=== PATIENT | male | born 1945 | race Caucasian/White ===

== ENCOUNTER 2017-04-22 16:06 | Inpatient (IN) | payer MEDICARE, OTHER ==
[~2017-04-22] VITALS: Ht 170.2 cm; Wt 73.5 kg
[~2017-04-22 16:06] MED LIST: ACET325T45 PO; ALBU2.5V3 NEB; AMLO2.5T78 PO; ASPI81TA3 PO; ATOR40TA68 PO; BENA20TA48 PO; DOCU-159 PO; DONE10TA7 PO; FAMO20TA18 PO; FOLI-49 PO; MAGN400T28 PO; MEMA10TA16 PO; METF500T4 PO; NEPH PO; Oxybutynin Chloride PO; SITA50TA2 PO
[2017-04-22] MEDS ORDERED: SODIUM CHLORIDE 0.9% 1L BAG IV* STA (17:27)
[2017-04-22] MEDS ORDERED: CEFEPIME 2GM/50 ML (PMX) 50 ML IVPB STA (17:27)
[2017-04-22] MEDS ORDERED: VANCOMYCIN 1 GM (PMX) 250 ML IVPB ONE (17:30)
[2017-04-22 18:02] LABS: ADD UMIC YES; UR ASCORBIC ACID NEGATIVE (NEGATIVE); UR BILIRUBIN (Dip) NEGATIVE (NEGATIVE); UR BLOOD (Dip) 2+ mg/dL (NEGATIVE); UR CLARITY CLEAR (CLEAR); UR COLOR YELLOW (YELLOW); UR GLUCOSE (Dip) 3+ mg/dL (NEGATIVE); UR KETONES (Dip) NEGATIVE (NEGATIVE); UR LEUKOCYTE ESTERASE (Dip) NEGATIVE Leu/ul (NEGATIVE); UR NITRITE (Dip) NEGATIVE (NEGATIVE); UR RBC 10 /HPF (0-5); UR SPECIFIC GRAVITY (Dip) 1.023 (1.003-1.030); UR TOTAL PROTEIN (Dip) NEGATIVE (NEGATIVE); UR UROBILINOGEN (Dip) NEGATIVE (NEGATIVE)
[2017-04-22 18:05] LABS: ABNORMAL IP MESSAGE 1; HEMOGLOBIN 15.6 g/dl (14.0-18.0); MEAN CORPUSCULAR HEMOGLOBIN 30.2 pg (29.0-33.0); MEAN CORPUSCULAR HGB CONC 30.6 g/dl (32.0-37.0); MEAN CORPUSCULAR VOLUME 98.8 fl (82.0-101.0); MEAN PLATELET VOLUME 12.9 fl (7.4-10.4); PLATELET COUNT 206 10^3/UL (140-415); POSITIVE DIFF @See below; RED BLOOD COUNT 5.16 10^6/ul (4.70-6.10); RED CELL DISTRIBUTION WIDTH 13.7 % (11.5-14.5); WHITE BLOOD COUNT 22.9 10^3/ul (4.8-10.8)
[2017-04-22 18:10] LABS: INR 1.39; PROTIME 17.1 Sec (12.2-14.2); PT RATIO 1.3
[2017-04-22 18:11] LABS: PARTIAL THROMBOPLASTIN TIME 29.1 Sec (25.0-35.0)
[2017-04-22 18:13] LABS: ALBUMIN 3.3 g/dl (3.3-4.9); ALBUMIN/GLOBULIN RATIO 0.91; BILIRUBIN,INDIRECT 0.7 mg/dl (0-1.1); BILIRUBIN,TOTAL 0.7 mg/dl (0.2-1.3); CALCIUM 10.2 mg/dl (8.4-10.2); CREATININE 2.47 mg/dl (0.61-1.24); POTASSIUM 4.4 mmol/L (3.5-5.1); TOTAL PROTEIN 6.9 g/dl (6.1-8.1)
[2017-04-22] MEDS ORDERED: AMLO5TAB4 PO (18:15)
[2017-04-22] MEDS ORDERED: CHLO25TA13 PO (18:16)
[2017-04-22] MEDS ORDERED: BENAZEPRIL 10 MG PO (18:18)
[2017-04-22] MEDS ORDERED: MAGN400T28 PO (18:19)
[2017-04-22] MEDS ORDERED: METF500T4 PO (18:20)
[2017-04-22] MEDS ORDERED: RIVA20TA PO (18:21)
[2017-04-22] MEDS ORDERED: DONE5TAB7 PO (18:22)
[2017-04-22] MEDS ORDERED: ATOR40TA68 PO (18:22)
[2017-04-22] MEDS ORDERED: FAMO20TA18 PO (18:23)
[2017-04-22 18:24] LABS: TROPONIN-I 0.107 ng/ml (0.00-0.12)
[2017-04-22] MEDS ORDERED: CARV12.579 PO (18:24)
[2017-04-22] MEDS ORDERED: INSU300I SQ (18:25)
[2017-04-22] MEDS ORDERED: ACET-2047 PO (18:27)
--- NOTE | 2017-04-22 18:27 | RADRPT ---
PROCEDURE: Chest x-ray CLINICAL INDICATION: Shortness of breath TECHNIQUE: Chest single view COMPARISON: 08/16/2014 FINDINGS: There post CABG changes. Stable mild cardiomegaly and an sclerotic aortic calcification is seen. The pulmonary vessels are normal in caliber. The lungs are clear. The costophrenic angles are sharp. The visualized bony thorax is unremarkable. IMPRESSION: No acute cardiopulmonary disease. Stable mild cardiomegaly and atherosclerotic aortic calcification RPTAT: HH .Bishnu Fernandez MD, Date Time Electronically viewed and signed by .Bishnu Fernandez MD, on 04/22/2017 18:27 .W/
[2017-04-22] MEDS ORDERED: BISA5TAB6 PO (18:28)
[2017-04-22] MEDS ORDERED: MAGN400O4 PO (18:28)
[2017-04-22] MEDS ORDERED: INSULIN ASPART [NOVOLOG] 3 ML PEN SC ONE ×2 (18:30→22:00)
[2017-04-22] MEDS ORDERED: GLUC1VIA6 IJ (18:30)
[2017-04-22] MEDS ORDERED: RIVA15TA PO (18:32)
[2017-04-22] MEDS ORDERED: ATOR20TA38 PO (18:33)
--- NOTE | 2017-04-22 18:37 | ERA ---
ER Documentation Chief Complaint Date/Time DATE: 04/22/17 TIME: 18:30 Chief Complaint HPI 71-year-old male with a history of diabetes, hypertension, dementia, multiple strokes, brought in by ambulance for altered mental status and fever at his nursing facility. Otherwise history is limited as the patient is nonverbal and there is no family members around. ROS Limited secondary to altered mental status Medications Home Meds Reported Medications Atorvastatin Calcium* (Atorvastatin Calcium*) 20 Mg Tablet, 20 MG PO QHS, #30 TAB 04/22/17 Rivaroxaban* (Xarelto*) 15 Mg Tablet, 15 MG PO QHS, TAB 04/22/17 Glucagon HCl (Glucagon HCl) 1 Mg Vial, 1 MG IJ NEEDED for FOR GLUCOSE, VIAL IF GLUCOSE<60MG/DL 04/22/17 Magnesium Hydroxide* (Milk Of Magnesia*) 400 Mg/5 Ml Oral.susp, 30 ML PO Q24H Y for NEEDED, ML 04/22/17 Bisacodyl* (Bisacodyl*) 5 Mg Tablet.dr, 5 MG PO DAILY Y for CONSTIPATION, TAB 04/22/17 Acetaminophen* (Acetaminophen*) 650 Mg Tablet, 650 MG PO Q4H Y for NEEDED, # 30 TAB FOR MILD PAIN 04/22/17 Insulin Glargine,Hum.rec.anlog ([place] Verduzco) 300 Unit/1 Ml Insuln.pen, 24 UNIT SQ Q9AM 04/22/17 Carvedilol* (Carvedilol*) 12.5 Mg Tablet, 12.5 MG PO BID, #60 TAB HOLD FOR SBP<100,HR<60 04/22/17 Famotidine* (Famotidine*) 20 Mg Tablet, 20 MG PO Q9PM, #30 TAB 04/22/17 Donepezil* (Donepezil*) 5 Mg Tablet, 5 MG PO Q9PM, #30 TAB 04/22/17 Atorvastatin* (Atorvastatin*) 40 Mg Tablet, 40 MG PO Q9PM, #30 TAB 04/22/17 Metformin Hcl* (Metformin Hcl*) 500 Mg Tablet, 500 MG PO WITH BREAKFAST, #30 TAB Q7AM 04/22/17 Magnesium Oxide* (Magnesium Oxide*) 400 Mg Tablet, 400 MG PO Q9AM, TAB 04/22/17 [Lotensin 10MG] No Conflict Check, 10 MG PO Q9AM 04/22/17 Chlorthalidone* (Chlorthalidone*) 25 Mg Tablet, 12.5 MG PO Q9AM, TAB 04/22/17 Amlodipine Besylate* (Norvasc*) 5 Mg Tablet, 5 MG PO Q9AM, TAB 04/22/17 Discontinued Reported Medications Rivaroxaban* (Xarelto*) 20 Mg Tablet, 20 MG PO WITH DINNER, TAB Q5PM 04/22/17 Albuterol Sulfate* (Albuterol Sulfate* Neb) 0.083%-3 Ml Neb, 1 VIAL NEB Q3H Y for WHEEZING AND SOB, EA 08/12/14 Acetaminophen* (Acetaminophen*) 325 Mg Tablet, 650 MG PO Q4H Y for PAIN AND OR ELEVATED TEMP, TAB 08/12/14 Famotidine* (Famotidine*) 20 Mg Tablet, 20 MG PO BID, TAB 08/12/14 Memantine* (Namenda*) 10 Mg Tablet, 10 MG PO BID, TAB 08/12/14 Benazepril Hcl* (Benazepril Hcl*) 20 Mg Tablet, 20 MG PO DAILY, TAB 08/12/14 Atorvastatin* (Atorvastatin*) 40 Mg Tablet, 40 MG PO HS, TAB 08/12/14 Amlodipine Besylate* (Amlodipine Besylate*) 2.5 Mg Tablet, 2.5 MG PO DAILY, TAB 08/12/14 Donepezil* (Donepezil*) 10 Mg Tablet, 10 MG PO DAILY, TAB 08/12/14 Sitagliptin* (Januvia*) 50 Mg Tablet, 50 MG PO DAILY, TAB 08/12/14 Aspirin* (Aspirin* Chew) 81 Mg Tab.chew, 81 MG PO DAILY, TAB.CHEW 08/12/14 Metformin Hcl* (Metformin Hcl*) 500 Mg Tablet, 500 MG PO DAILY, TAB 08/12/14 Magnesium Oxide* (Magnesium Oxide*) 400 Mg Tablet, 400 MG PO DAILY, TAB 08/12/14 Docusate Sodium* (Docusate Sodium*) 100 Mg Capsule, 100 MG PO DAILY, CAP 08/12/14 Multivit/Ca Carb/B Cmplx/Fa* (Christy-Garret*) 1 Tab Tab, 1 TAB PO DAILY, TAB 08/12/14 Folic Acid* (Folic Acid*) 1 Mg Tablet, 1 MG PO, TAB 08/12/14 Discontinued Scripts [Oxybutynin Chloride] 5 MG TAB No Conflict Check, 5 MG PO TID for 30 Days, TAB Prov:MIRNA EGAN MD 08/19/14 Allergies Allergies: Coded Allergies: No Known Allergy (Unverified , 04/22/17) PMhx/Soc History of Surgery: No Anesthesia Reaction: No Hx Neurological Disorder: Yes (RT CVA) Hx Respiratory Disorders: Yes (COPD) Hx Cardiac Disorders: Yes (HYPERLIPIDEMIA, HTN) Hx Psychiatric Problems: Yes (CHRONIC MENTAL ILLNESS) Hx Miscellaneous Medical Probl: Yes (HTN, HLD, CVA c L hemiplegia, CKD, COPD, recurrent bronchitis, urosepsis,DM) Hx Alcohol Use: No Hx Substance Use: No Hx Tobacco Use: No FmHx Family History: other (unAble to obtain) Physical Exam Vitals Vital Signs Date Time Temp Pulse Resp B/P Pulse Ox O2 Delivery O2 Flow Rate FiO2 04/22/17 20:41 100 23 93/61 99 Mask 5.0 04/22/17 19:46 105 23 88/62 99 Non Rebreather 10.0 04/22/17 18:43 107 30 79/57 96 Non Rebreather 10.0 04/22/17 18:08 106 30 80/62 98 Non Rebreather 10.0 04/22/17 17:45 Rebreather 10 04/22/17 17:22 83 24 68/54 98 Non Rebreather 10.0 04/22/17 16:49 83 24 68/54 98 Physical Exam Const: Chronically ill-appearing, eyes open, unresponsive, appears somewhat toxic Head: Atraumatic Eyes: Normal Conjunctiva, PERRLA ENT: Dry mucous membranes, mouth open Neck: No swelling C-spine without step-offs, no evidence of trauma Resp: Breath sounds bilaterally with crackles Cardio: Regular rate and rhythm, no murmurs Abd: Soft, non tender, non distended. Normal bowel sounds Skin: No petechiae or rashes Back: No midline or flank tenderness Ext: No cyanosis, or edema. Right upper and lower extremity contracted with atrophy. Neur: Awake and alert, not answering questions, does not track with eyes. Rupali. Spontaneously moves left hand and left lower extremity, withdraws to pain. Right lower and upper extremity without withdrawal to painful stimuli Result Diagram: 04/22/17 1730 04/22/17 2255 Results 24 hrs Laboratory Tests Test 04/22/17 17:30 04/22/17 19:36 04/22/17 20:15 04/22/17 21:50 White Blood Count 22.910^3/ul Red Blood Count 5.1610^6/ul Hemoglobin 15.6g/dl Hematocrit 51.0% Mean Corpuscular Volume 98.8fl Mean Corpuscular Hemoglobin 30.2pg Mean Corpuscular Hemoglobin Concent 30.6g/dl Red Cell Distribution Width 13.7% Platelet Count 19413^3/UL Mean Platelet Volume 12.9fl Neutrophils % % Segmented Neutrophils % (Manual) 92% Lymphocytes % % Lymphocytes % (Manual) 6% Monocytes % % Monocytes % (Manual) 2% Eosinophils % % Basophils % % Nucleated Red Blood Cells % 0.0/100WBC Neutrophils # 10^3/ul Absolute Lymphocytes (Manual) 1.310^3/ul Lymphocytes # 10^3/ul Monocytes # 10^3/ul Absolute Monocytes (Manual) 0.410^3/ul Eosinophils # 10^3/ul Basophils # 10^3/ul Nucleated Red Blood Cells # 10^3/ul Platelet Estimate NORMAL Giant Platelets 1% Polychromasia 1+ Anisocytosis 1+ Microcytosis 1+ Prothrombin Time 17.1Sec Prothrombin Time Ratio 1.3 INR International Normalized Ratio 1.39 Activated Partial Thromboplast Time 29.1Sec Urine Color YELLOW Urine Clarity CLEAR Urine pH 5.0 Urine Specific [place] 1.023 Urine Ketones NEGATIVEmg/dL Urine Nitrite NEGATIVEmg/dL Urine Bilirubin NEGATIVEmg/dL Urine Urobilinogen NEGATIVEmg/dL Urine Leukocyte Esterase NEGATIVELeu/ul Urine Microscopic RBC 10/HPF Urine Microscopic WBC 1/HPF Urine Hemoglobin 2+mg/dL Urine Glucose 3+mg/dL Urine Total Protein NEGATIVEmg/dl Sodium Level 160mmol/L Potassium Level 4.4mmol/L Chloride Level 127mmol/L Carbon Dioxide Level 24mmol/L Anion Gap 13 Blood Urea Nitrogen 65mg/dl Creatinine 2.47mg/dl Glucose Level 576mg/dl Lactic Acid Level 3.0mmol/L 1.9mmol/L Calcium Level 10.2mg/dl Total Bilirubin 0.7mg/dl Direct Bilirubin 0.00mg/dl Indirect Bilirubin 0.7mg/dl Aspartate Amino Transf (AST/SGOT) 18IU/L Alanine Aminotransferase (ALT/SGPT) 21IU/L Alkaline Phosphatase 78IU/L Troponin I 0.107ng/ml Total Protein 6.9g/dl Albumin 3.3g/dl Globulin 3.60g/dl Albumin/Globulin Ratio 0.91 Bedside Glucose 389mg/dL 363mg/dL Current Medications Medications (Trade) Dose Ordered Sig/[place] Route PRN Reason Start Time Stop Time Status Last Admin Dose Admin Sodium Chloride 1970 ml 1,970 ml BOLUS OVER 2 HOURS STAT IV* 04/22/17 17:27 04/22/17 17:39 DC 04/22/17 17:54 Cefepime HCl 50 ml @ 100 mls/hr ONCE STAT IVPB 04/22/17 17:27 04/22/17 17:56 DC 04/22/17 20:03 Vancomycin HCl (Vancocin) 250 ml @ 125 mls/hr ONCE ONCE IVPB 04/22/17 17:30 04/22/17 19:29 DC 04/22/17 17:55 Insulin Aspart (Novolog Insulin Pen) 10 unit ONCE ONCE SC 04/22/17 18:30 04/22/17 18:31 DC 04/22/17 20:17 Diagnostic Test (Pha) 1 ea 1 ea Q2 XX 04/22/17 19:00 04/23/17 01:04 Norepinephrine (Levophed) 250 ml @ 1.875 mls/ hr TITRATE IV 04/22/17 20:30 04/22/17 20:35 Insulin Aspart (Novolog Insulin Pen) 5 unit ONCE ONCE SC 04/22/17 22:00 04/22/17 22:01 DC 04/22/17 21:58 Ondansetron HCl (Zofran Inj) 4 mg Q6H PRN IV NAUSEA AND/OR VOMITING 04/22/17 22:00 Acetaminophen (Tylenol Supp) 650 mg Q4H PRN NE PAIN LEVEL 1-3 OR FEVER 04/22/17 22:00 Procedures/MDM Labs CBC: leukocytosis of 22 CMP: Hypernatremia, hyperchloremia, elevated BUN and creatinine, hyperglycemia Troponin within normal limits Lactate elevated UA: no evidence of infection EKG: Rate/Rhythm: Sinus tachycardia at 10 2 bpm QRS, ST, T-waves: Left axis deviation, right bundle branch block, inferior, anterior, lateral Q waves. No changes consistent w/ acute ischemia Impression: Sinus tachycardia, no evidence of acute ischemia Imaging Chest x-ray: IMPRESSION: No acute cardiopulmonary disease. Stable mild cardiomegaly and atherosclerotic aortic calcification RPTAT: HH .Bishnu Fernandez MD, Date Time Electronically viewed and signed by .Bishnu Fernandez MD, MD on 04/22/2017 18:27 CT head: IMPRESSION: 1. Old left MCA territory infarct with encephalomalacia and wallerian degeneration of downstream corticospinal tracts has evolved since the prior exam. There is a new cortical infarct in the posterior right temporal lobe that is likely chronic. Patchy low density changes in the supratentorial deep white matter are increased from prior exam and nonspecific but likely due to chronic small vessel ischemia. If there is concern for recent ischemia, recommend MRI. 2. Negative for evidence of acute intracranial hemorrhage or mass effect. 3. Severe intracranial atherosclerosis. RPTAT: HCTS Physician Anastasia Date Time Electronically viewed and signed by Physician Anastasia on 04/22/2017 18: 45 MDM She is presenting with altered mental status, acute respiratory failure, and evidence of significant dehydration, hyperglycemia, and sepsis. He was started on IV fluids. His hyperglycemia was treated with insulin subcutaneously with improvement. Also noted to have renal failure. Patient's infectious symptoms have not stabilized and the patient is at risk of rapid decompensation. The patient will be admitted for careful hydration, antibiotic therapy, and infectious source control. Severe Sepsis Assessment: Infectious Source: Unknown End organ damage indicated by: Lactate > 2.0 mmol/L Hypotension( SBP < 90 or >40 mmHG drop or MAP < 65) [employer] > 2.0 Severe Sepsis Managment: Blood Cultures X 2 before broad spectrum antibiotics initiated within 3 hours of recognition. 30 ml/kg NS bolus Completed Initial Lactate: 3 Repeat Lactate within normal limits Critical Care: Time: 40 minutes Treatments/Evaluations: Emergent fluid management, while maintaining close respiratory support. Immediate broad spectrum antibiotic therapy. Simultaneous assessment for possible sources in order to direct therapy. Consideration for invasive and chemical support to prevent respiratory or cardiac collapse. Septic Shock Assessment (1 hour post 30 ml/kg fluid bolus): Hypotension (SBP < 90 or 40 mmHg drop, MAP < 65): yes Lactic acid > 4.0 no After the fluid bolus, the patient remains slightly hypotensive. I did a bedside ultrasound of his IVC and it was full and not collapsible. I do not think the patient will tolerate any further fluid boluses and this would likely make his respiratory condition worse. He was started on peripheral norepinephrine for hypotension. Accepting Care Team: Current data and ongoing care discussed. Time: Time of admission Primary Provider: Adalid Consulting: None Admit to ICU Departure Diagnosis: Primary Impression: Altered mental status Qualified Code: R41.82 - Altered mental status, unspecified altered mental status type Additional Impressions: Respiratory failure with hypoxia Qualified Code: J96.01 - Acute respiratory failure with hypoxia Septic shock Acute hypernatremia Hyperglycemia Renal failure Qualified Code: N19 - Renal failure, unspecified chronicity Condition: Critical NICOLETTE LEA MD Apr 22, 2017 18:37
[2017-04-22 18:38] LABS: ANISOCYTOSIS 1+ (0-0); GIANT THROMBO% (M) 1 % (0-0); MICROCYTOSIS 1+ (0-0); MONOCYTES % (M) 2 % (0-11); PLATELET ESTIMATE NORMAL; POLYCHROMASIA 1+ (0-0)
--- NOTE | 2017-04-22 18:45 | RADRPT ---
PROCEDURE: CT HEAD WITHOUT CONTRAST: CLINICAL INDICATION: 71 years of age, male, altered level of consciousness . COMPARISON: MR brain August 16, [address] brain August 12, 2014 TECHNIQUE: CT of the head was performed without IV contrast. Coronal and sagittal reformatted images were obtained from the axial source images. Images were reviewed on a high-resolution PACS workstat ion. Dose information: The estimated radiation dose (CTDIvol mGy) for each series in this exam is 49. Th e estimated cumulative dose (DLP mGy-cm) is 796. One or more of the following dose reduction techniques were used: - Automated exposure control. - Adjustment of the mA and/or kV according to patient size. - Use of iterative reconstruction technique. FINDINGS: Parenchyma: Negative for evidence of acute intracranial hemorrhage, significant mass effect or midli ne shift. There is an old left MCA territory infarct with extensive encephalomalacia and ex vacuo dilatation of the left lateral ventricle and Wallerian degeneration affecting the left cerebral pedu ncle and the left fidencio that has evolved since prior exam. There is a new cortical infarct in the pos terior right temporal lobe that appears chronic (2/15). There are nonspecific patchy low density ch anges in the supratentorial deep white matter that are increased and nonspecific but likely due to chronic small vessel ischemia. Moderate diffuse cerebral tissue loss. Severe intracranial atherosc lerosis. Ventricles and extra-axial spaces: Prominence of the ventricles proportionate to the sulci in keepin g with cerebral tissue loss. There is ex vacuo dilatation of the left lateral ventricle due to the o ld left MCA territory infarct. No abnormal extra-axial fluid collections are identified. Visualized paranasal sinuses: Clear. Mastoid air cells: Clear. Bones: No focal abnormality. Additional comment: None. IMPRESSION: 1. Old left MCA territory infarct with encephalomalacia and wallerian degeneration of downstream co rticospinal tracts has evolved since the prior exam. There is a new cortical infarct in the posterio r right temporal lobe that is likely chronic. Patchy low density changes in the supratentorial deep white matter are increased from prior exam and nonspecific but likely due to chronic small vessel is chemia. If there is concern for recent ischemia, recommend MRI. 2. Negative for evidence of acute intracranial hemorrhage or mass effect. 3. Severe intracranial atherosclerosis. RPTAT: HCTS Summer Quach, Physician Date Time Electronically viewed and signed by Summer Quach, Physician on 04/22/2017 18:45 /
[2017-04-22] MEDS: ACCU-CHEK XX SCH ×3 (19:48→23:10)
[2017-04-22] MEDS ORDERED: NORepinephrine 8MG/250 ML (PMX 250 ML IV SCH (20:30)
[2017-04-22] MEDS ORDERED: ONDANSETRON 4 MG INJ IV PRN (22:00)
[2017-04-22] MEDS ORDERED: ACETAMINOPHEN 650 MG SUPP PR PRN (22:00)
[2017-04-22 23:10] VITALS: TEMP 98.3
[2017-04-22 23:33] VITALS: PULSE 74; PULSE 93
[2017-04-22 23:39] LABS: CREATININE 2.12 mg/dl (0.61-1.24); POTASSIUM 4.2 mmol/L (3.5-5.1)
[2017-04-22 23:45] VITALS: BP 95/73; PULSE 97; RESP 22
[2017-04-23] VITALS (62 sets, daily range): BP systolic 99–132; BP diastolic 59–101; PULSE 63–84; RESP 13–25; Ht 170.2 cm; Wt 73.5 kg
[2017-04-23] MEDS ORDERED: INSULIN ASPART [NOVOLOG] 3 ML PEN SC ONE (00:30)
[2017-04-23] MEDS ORDERED: SOD CHLORIDE 0.45% 1,000 ML IV SCH (01:00)
[2017-04-23] MEDS: INSULIN ASPART [NOVOLOG] 3 ML PEN SC SCH ×6 (01:00→22:21)
[2017-04-23] MEDS: ACCU-CHEK XX SCH ×9 (01:04→15:00)
--- NOTE | 2017-04-23 01:26 | HP ---
Date/Time of Note Date/Time of Note DATE: 04/23/17 TIME: 00:56 Assessment/Plan VTE Prophylaxis VTE Prophylaxis Intervention: SCD's Lines/Catheters IV [facility]ter Type (from [facility]): Central Line Central line still needed: No Assessment/Plan Chief Complaint/Hosp Course This is a 71-year-old male being admitted to the ICU floor for: #1 Sepsis: Patient initially presented hypotensive and tachypneic. At the current time chest x-ray appears normal and urinalysis appears negative as well. Patient however does have an elevated white blood cell count. Start broad-spectrum antibiotics of vancomycin and cefepime. Will obtain urine and blood cultures. History of decub ulcers which also could be because of infection will consult wound care. Continue to monitor for fevers. Currently on levophed for blood pressure support. #2 encephalopathy: Infection and/or metabolic and/or chronic vascular. Patient has a history of cognitive impairment secondary to multiple comorbidities. At the current time patient does appear to be septic and dealing with her infection would likely could be the cause of his altered status. Attempt was made to call the daughter however was unable to contact her to assess for patient's most recent mental status prior to this change. Scan does show signs of old infarct however no signs of an acute event. Treat infection continue to monitor. dysphagia eval. #3 hypernatremia: Etiology unknown at this time some causes may be secondary to osmotic diuresis secondary to uncontrolled diabetes versus insensible losses versus other etiology. Check urine and serum osmolality. Will check fractional excretion of sodium. Will obtain a nephrology consult. Will attempt to correct hyponatremia slowly with half normal saline at approximately 125 cc an hour. Will check BMP every 3 hours. #4 Chronic kidney disease: Patient apparently has a history of stage III. Will continue to follow creatinine and calculated GFR. Urine studies ordered as per #3. Hold nephrotoxic agents. Renally dose antibiotics. #5 leukocytosis: Secondary to underlying infection, right now there is no source of infection. Covered with broad-spectrum antibiotics at that time. Please see #1. Await urine cultures and blood cultures. #6 diabetes mellitus: Patient on insulin sliding scale, will check blood sugars every hour while in the ICU until better control of blood sugars. IV fluids. #7 hypertension: At the current time patient is on pressors secondary to hypotension. Will hold blood pressure medication at this time. #8 History of CVA: Resulting in paresis however unable to assess which side exactly has been effective if not both secondary to patient cognitively impaired. Will attempt to get a better history from the family. resume statin when patient can tolerate po #9 decubitus ulcer: We will obtain wound care consult, patient currently on antibiotics. #10 DVT GI prophylaxis: SCDs, Protonix Treatment strategy will be implemented as per the clinical course Problems: HPI/ROS Admit Date/Time Admit Date/Time Apr 22, 2017 at 22:01 Hx of Present Illness Chief complaint: Altered level of consciousness, fever, shortness of breath History is obtained from the nursing staff and the ED staff as well as the patient's chart as patient himself is nonverbal. This is a 8-year-old male who was transferred from [facility] for altered level of consciousness fever and shortness of breath. He was sent in to be evaluated for pneumonia. Patient himself is nonverbal and therefore was difficult to get history from him. According to patient's chart he has a history of chronic medication impairment secondary to his strokes and he is not able to follow command and nods rarely. 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 Decubitus Past Surgical History Incision and drainage of right buttock abscess Family History Significant Family History: no pertinent family hx Social History Information obtained from the chart. Patient has a daughter and son. Alcohol Use: none Smoking Status: Never smoker Drug Use: none Exam/Review of Systems Vital Signs Vitals Vital Signs Date Time Temp Pulse Resp B/P Pulse Ox O2 Delivery O2 Flow Rate FiO2 04/23/17 00:00 98.9 79 24 124/76 100 Mask 5.0 Intake and Output 04/22/17 04/22/17 04/23/17 15:00 23:00 07:00 Output Total 500 ml Balance -500 ml Exam Exam General: Patient is lying in bed does not appear in acute distress HEENT: Atraumatic, normocephalic. The pupils are equal, round and reactive. Extraocular motor are intact Neck: No rigidity or meningismus Lungs: Clear to auscultation bilaterally no crackles rales or wheezing Heart: Normal S1-S2, Regular rhythm and rate. No overt murmur appreciated Abdomen: Soft , nontender, nondistended , bowel sounds are present. No guarding no rebound tenderness , No masses or organomegaly. Extremities: Normal to inspection, no edema no cyanosis Neurologic: Unable to assess secondary to patient's chronic mental illness as well as history of CVA resulting in cognitive and functional impairment Additional Comments PROCEDURE: CT HEAD WITHOUT CONTRAST: CLINICAL INDICATION: 71 years of age, male, altered level of consciousness . COMPARISON: MR brain August 16, [address] brain August 12, 2014 TECHNIQUE: CT of the head was performed without IV contrast. Coronal and sagittal reformatted images were obtained from the axial source images. Images were reviewed on a high-resolution PACS workstation. Dose information: The estimated radiation dose (CTDIvol mGy) for each series in this exam is 49. The estimated cumulative dose (DLP mGy-cm) is 796. One or more of the following dose reduction techniques were used: - Automated exposure control. - Adjustment of the mA and/or kV according to patient size. - Use of iterative reconstruction technique. FINDINGS: Parenchyma: Negative for evidence of acute intracranial hemorrhage, significant mass effect or midline shift. There is an old left MCA territory infarct with extensive encephalomalacia and ex vacuo dilatation of the left lateral ventricle and Wallerian degeneration affecting the left cerebral peduncle and the left fidencio that has evolved since prior exam. There is a new cortical infarct in the posterior right temporal lobe that appears chronic (2/15). There are nonspecific patchy low density changes in the supratentorial deep white matter that are increased and nonspecific but likely due to chronic small vessel ischemia. Moderate diffuse cerebral tissue loss. Severe intracranial atherosclerosis. Ventricles and extra-axial spaces: Prominence of the ventricles proportionate to the sulci in keeping with cerebral tissue loss. There is ex vacuo dilatation of the left lateral ventricle due to the old left MCA territory infarct. No abnormal extra-axial fluid collections are identified. Visualized paranasal sinuses: Clear. Mastoid air cells: Clear. Bones: No focal abnormality. Additional comment: None. IMPRESSION: 1. Old left MCA territory infarct with encephalomalacia and wallerian degeneration of downstream corticospinal tracts has evolved since the prior exam. There is a new cortical infarct in the posterior right temporal lobe that is likely chronic. Patchy low density changes in the supratentorial deep white matter are increased from prior exam and nonspecific but likely due to chronic small vessel ischemia. If there is concern for recent ischemia, recommend MRI. 2. Negative for evidence of acute intracranial hemorrhage or mass effect. 3. Severe intracranial atherosclerosis. RPTAT: HCTS Summer Quach Physician Date Time Electronically viewed and signed by Summer Quach, Physician on 04/22/2017 18: 45 CS/ CC: NICOLETTE LEA MD PROCEDURE: Chest x-ray CLINICAL INDICATION: Shortness of breath TECHNIQUE: Chest single view COMPARISON: 08/16/2014 FINDINGS: There post CABG changes. Stable mild cardiomegaly and an sclerotic aortic calcification is seen. The pulmonary vessels are normal in caliber. The lungs are clear. The costophrenic angles are sharp. The visualized bony thorax is unremarkable. IMPRESSION: No acute cardiopulmonary disease. Stable mild cardiomegaly and atherosclerotic aortic calcification RPTAT: HH .Bishnu Fernandez MD, MD Date Time Electronically viewed and signed by .Bishnu Fernandez MD, on 04/22/2017 18:27 .W/ CC: NICOLETTE LEA MD Labs Result Diagram: 04/22/17 1730 04/22/17 7485 Medications Medications Current Medications Diagnostic Test (Pha) 1 ea 1 ea Q2 XX Last administered on 04/22/17t 23:10; Admin Dose 1 EA; Start 04/22/17 at 19:00 Norepinephrine (Levophed) 250 ml @ 1.875 mls/ hr TITRATE IV Last administered on 04/22/17t 20:35; Admin Dose 1.875 MLS/HR; Start 04/22/17 at 20:30 Ondansetron HCl (Zofran Inj) 4 mg Q6H PRN IV NAUSEA AND/OR VOMITING; Start at 22:00 Acetaminophen (Tylenol Supp) 650 mg Q4H PRN [place] PAIN LEVEL 1-3 OR FEVER; Start 04/22/17 at 22:00 Pantoprazole (Protonix Iv) 40 mg DAILY@06 IV ; Start 04/23/17 at 06:00 Miscellaneous Information (* Miscellaneous Pharmacy Order) Discontinue current oral sulfonylur... ONCE ONCE XX ; Start 04/23/17 at 01:00; Stop 04/23/17 at 01: 01 Diagnostic Test (Pha) (Accu-Chek) 1 XX ; Start 04/23/17 at 02:00 Miscellaneous Information (* Miscellaneous Pharmacy Order) HYPOGLYCEMIA PROTOCOL w... ONCE ONCE XX ; Start 04/23/17 at 01:00; Stop 04/23/17 at 01:01 Insulin Aspart (Novolog Insulin Pen) NOVOLOG *MODERATE* ALGORI... Q4 SC ; Start 04/23/17 at 01:00 Miscellaneous Information Discontinue all previ... ONCE ONCE XX ; Start at 01:00; Stop 04/23/17 at 01:01 Sodium Chloride (1/2 NS) 1,000 ml @ 125 mls/hr Q8H IV ; Start 04/23/17 at 01:00 LEONA GOLDBERG Apr 23, 2017 01:09
[2017-04-23] MEDS ORDERED: VANCOMYCIN IV PER PHARMACY XX SCH (01:30)
[2017-04-23] MEDS ORDERED: GLUCOSE GEL 15 GRAM TUBE BUCCAL PRN (02:30)
[2017-04-23] MEDS ORDERED: DEXTROSE 50% 50 ML SYRINGE IV PRN ×2 (02:30)
[2017-04-23] MEDS ORDERED: GLUCAGON 1 MG INJ IM PRN (02:30)
[2017-04-23] MEDS ORDERED: GLUCOSE GEL 15 GRAM TUBE PO PRN ×2 (02:30)
[2017-04-23 05:10] LABS: BASOPHILS % 0.2 % (0.0-2.0); EOSINOPHILS # 0.1 10^3/ul (0.0-0.5); EOSINOPHILS % 0.4 % (0.0-7.0); HEMATOCRIT 46.9 % (42.0-52.0); HEMOGLOBIN 13.7 g/dl (14.0-18.0); LYMPHOCYTES # 2.6 10^3/ul (0.8-2.9); LYMPHOCYTES % 18.3 % (15.0-51.0); MEAN CORPUSCULAR HEMOGLOBIN 30.3 pg (29.0-33.0); MEAN CORPUSCULAR HGB CONC 29.2 g/dl (32.0-37.0); MEAN CORPUSCULAR VOLUME 103.8 fl (82.0-101.0); MEAN PLATELET VOLUME 12.5 fl (7.4-10.4); MONOCYTE # 0.5 10^3/ul (0.3-0.9); MONOCYTES % 3.8 % (0.0-11.0); NEUTROPHIL # 10.9 10^3/ul (1.6-7.5); NEUTROPHILS % 76.8 % (39.0-77.0); PLATELET COUNT 131 10^3/UL (140-415); RED BLOOD COUNT 4.52 10^6/ul (4.70-6.10); RED CELL DISTRIBUTION WIDTH 13.8 % (11.5-14.5); WHITE BLOOD COUNT 14.2 10^3/ul (4.8-10.8)
[2017-04-23] MEDS ORDERED: PANTOPRAZOLE 40 MG INJ IV SCH (06:00)
[2017-04-23 06:59] LABS: ALBUMIN/GLOBULIN RATIO 0.88; BILIRUBIN,INDIRECT 0.8 mg/dl (0-1.1); BILIRUBIN,TOTAL 0.8 mg/dl (0.2-1.3); CALCIUM 9.1 mg/dl (8.4-10.2); CREATININE 1.93 mg/dl (0.61-1.24); MAGNESIUM 2.5 mg/dl (1.7-2.5); POTASSIUM 3.8 mmol/L (3.5-5.1); TOTAL PROTEIN 6.4 g/dl (6.1-8.1)
[2017-04-23] MEDS ORDERED: DEXTROSE 5% WATER 500 ML BAG IV ONE (08:30)
[2017-04-23] MEDS ORDERED: CEFEPIME 1GM/50 ML (PMX) 50 ML IVPB SCH (09:00)
[2017-04-23] MEDS ORDERED: DEXTROSE 5% 1,000 ML IV SCH (10:00)
--- NOTE | 2017-04-23 11:30 | CONS ---
Date/Time of Note Date/Time of Note DATE: 04/23/17 TIME: 11:29 Assessment/Plan Assessment/Plan Additional Assessment/Plan 1. BECKY on CKD III due to ATN from sepsis and due to prerenal azotemia 2. 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 Hypernatremia 4. Sepsis 5. Acute encephalopathy due to infectious and metabolic encephalopathy 6. H/o CAD S/p CABG 7. Hypertension 8. [employer] 9. Sacral decubitus ulcer on admission Plan: Order serum osmolarity, urine Osmolarity, Urine Na, TSH , Free T4, Cortisol Change IVF to D5W at 100 cc/hr, if BS runs high then we will consider adjusting insulin Free water 200cc Every 4 hour x 2 days Expecting Renal function to improve with IV Fluids and IV abx Renal US to assess for kideny size, echogenicity and to rule out uhydronephrosis apprently pt has h/o CKD due to Diabetic nephropathy Continue current IV abx, renally dose all antibiotics Thanks for consultation,we will continue to follow up on patient. Consultation Date/Type/Reason Admit Date/Time Apr 22, 2017 at 22:01 Date of Consultation: Apr 23, 2017 Type of Consultation: NEPHROLOGY Reason for Consultation acute renal failure, Hypernatremia Referring Provider: LEONA GOLDBERG Hx of Present Illness 71-year-old male with a history of diabetes, hypertension, dementia, multiple strokes, H/o CKD III due to Diabetice nephropathy brought in by ambulance for altered mental status and fever at his nursing facility. Pt is altered, unable to provide history due to altered mental status. He gets admitted for sepsis, encephalopathy and Renal consulted for BECKY on CKD, Hypernatremia and Fluid management. Subjective hx not possible: pt non-verbal Past Medical History Medical History: congestive heart failure, coronary artery disease, hypertension, other (CKD III due to diabetic nephropathy ) Past Surgical History Past Surgical Hx: other (CABG ) Family History Significant Family History: no pertinent family hx Social History Alcohol Use: none Smoking Status: Never smoker Drug Use: none Exam/Review of Systems Vital Signs Vitals Vital Signs Date Time Temp Pulse Resp B/P Pulse Ox O2 Delivery O2 Flow Rate FiO2 04/23/17 08:30 80 19 122/80 97 04/23/17 08:00 Nasal Cannula 4.0 04/23/17 08:00 97.5 Intake and Output 04/22/17 04/22/17 04/23/17 15:00 23:00 07:00 Intake Total 750 ml Output Total 500 ml 510 ml Balance -500 ml 240 ml Exam Constitutional: non-verbal Head: normocephalic Eyes: nl conjunctiva ENMT: other (NG tube in place ) Neck: non-tender, supple Respiratory: congested cough, crackles/rales, diminished breath sounds Cardiovascular: other (tachycardia ), regular rate and rhythm Gastrointestinal: non-tender, other (non distended, ), soft Musculoskeletal: muscle weakness, nl extremities to inspection Neurological: lethargic, other (arousable with sternal rub ) Results Result Diagram: 04/23/17 0439 04/23/17 0439 Results 24 hrs Laboratory Tests Test 04/22/17 17:30 04/22/17 19:36 04/22/17 20:15 04/22/17 21:50 White Blood Count 22.9 #H Red Blood Count 5.16 Hemoglobin 15.6 Hematocrit 51.0 Mean Corpuscular Volume 98.8 Mean Corpuscular Hemoglobin 30.2 Mean Corpuscular Hemoglobin Concent 30.6 L Red Cell Distribution Width 13.7 Platelet Count 206 Mean Platelet Volume 12.9 #H Neutrophils % Segmented Neutrophils % (Manual) 92 H Lymphocytes % Lymphocytes % (Manual) 6 L Monocytes % Monocytes % (Manual) 2 Eosinophils % Basophils % Nucleated Red Blood Cells % 0.0 Neutrophils # Absolute Lymphocytes (Manual) 1.3 Lymphocytes # Monocytes # Absolute Monocytes (Manual) 0.4 Eosinophils # Basophils # Nucleated Red Blood Cells # Platelet Estimate NORMAL Giant Platelets 1 H Polychromasia 1+ Anisocytosis 1+ Microcytosis 1+ Prothrombin Time 17.1 H Prothrombin Time Ratio 1.3 INR International Normalized Ratio 1.39 Activated Partial Thromboplast Time 29.1 Urine Color YELLOW Urine Clarity CLEAR Urine pH 5.0 Urine Specific Spelter 1.023 Urine Ketones NEGATIVE Urine Nitrite NEGATIVE Urine Bilirubin NEGATIVE Urine Urobilinogen NEGATIVE Urine Leukocyte Esterase NEGATIVE Urine Microscopic RBC 10 H Urine Microscopic WBC 1 Urine Hemoglobin 2+ H Urine Glucose 3+ H Urine Total Protein NEGATIVE Sodium Level 160 H Potassium Level 4.4 Chloride Level 127 H Carbon Dioxide Level 24 Anion Gap 13 Blood Urea Nitrogen 65 H Creatinine 2.47 H Glucose Level 576 *H Lactic Acid Level 3.0 *H 1.9 Calcium Level 10.2 Total Bilirubin 0.7 Direct Bilirubin 0.00 Indirect Bilirubin 0.7 Aspartate Amino Transf (AST/SGOT) 18 Alanine Aminotransferase (ALT/SGPT) 21 Alkaline Phosphatase 78 Troponin I 0.107 Total Protein 6.9 Albumin 3.3 Globulin 3.60 H Albumin/Globulin Ratio 0.91 Bedside Glucose 389 H 363 H Test 04/22/17 22:08 04/22/17 22:55 04/22/17 23:07 04/23/17 02:20 Lactic Acid Level 1.7 Sodium Level 161 *H Potassium Level 4.2 Chloride Level 131 H Carbon Dioxide Level 24 Anion Gap 10 Blood Urea Nitrogen 62 H Creatinine 2.12 H Glucose Level 412 #*H Calcium Level 9.0 Bedside Glucose 347 H 278 H Test 04/23/17 03:02 04/23/17 04:39 04/23/17 05:24 04/23/17 06:52 Bedside Glucose 254 H 237 H 192 White Blood Count 14.2 #H Red Blood Count 4.52 L Hemoglobin 13.7 L Hematocrit 46.9 Mean Corpuscular Volume 103.8 H Mean Corpuscular Hemoglobin 30.3 Mean Corpuscular Hemoglobin Concent 29.2 L Red Cell Distribution Width 13.8 Platelet Count 131 #L Mean Platelet Volume 12.5 H Neutrophils % 76.8 Lymphocytes % 18.3 Monocytes % 3.8 Eosinophils % 0.4 Basophils % 0.2 Nucleated Red Blood Cells % 0.0 Neutrophils # 10.9 H Lymphocytes # 2.6 Monocytes # 0.5 Eosinophils # 0.1 Basophils # 0.0 Nucleated Red Blood Cells # 0.0 Sodium Level 166 *H Potassium Level 3.8 Chloride Level 132 H Carbon Dioxide Level 27 Anion Gap 11 Blood Urea Nitrogen 60 H Creatinine 1.93 H Glucose Level 247 #H Osmolality 362 H Calcium Level 9.1 Magnesium Level 2.5 Total Bilirubin 0.8 Direct Bilirubin 0.00 Indirect Bilirubin 0.8 Aspartate Amino Transf (AST/SGOT) 20 Alanine Aminotransferase (ALT/SGPT) 25 Alkaline Phosphatase 64 Total Protein 6.4 Albumin 3.0 L Globulin 3.40 H Albumin/Globulin Ratio 0.88 Test 04/23/17 08:23 Bedside Glucose 188 Medications Medications Current Medications Diagnostic Test (Pha) (Accu-Chek) 1 ea Q2 XX Last administered on 04/23/17t 08: 40; Admin Dose 1 EA; Start 04/22/17 at 19:00 Ondansetron HCl (Zofran Inj) 4 mg Q6H PRN IV NAUSEA AND/OR VOMITING; Start at 22:00 Acetaminophen (Tylenol Supp) 650 mg Q4H PRN [place] PAIN LEVEL 1-3 OR FEVER; Start 04/22/17 at 22:00 Pantoprazole (Protonix Iv) 40 mg DAILY@06 IV Last administered on 04/23/17 05: 23; Admin Dose 40 MG; Start 04/23/17 at 06:00 Diagnostic Test (Pha) (Accu-Chek) 1 ea 02 XX Last administered on 04/23/17 02: 04; Admin Dose 1 EA; Start 04/23/17 at 02:00 Insulin Aspart NOVOLOG *MODERATE* ALGORI... Q4 SC Last administered on 08:29; Admin Dose 4 UNIT; Start 04/23/17 at 01:00 Cefepime HCl (Maxipime 1gm/50 ml (Pmx)) 50 ml @ 100 mls/hr Q12 IVPB Last administered on 04/23/17 08:24; Admin Dose 100 MLS/HR; Start 04/23/17 at 09:00 Miscellaneous Information 1 ea NOTE XX ; Start 04/23/17 at 02:30 Glucose (Glutose) 15 gm Q15M PRN PO DECREASED GLUCOSE; Start 04/23/17 at 02:30 Glucose (Glutose) 22.5 gm Q15M PRN PO DECREASED GLUCOSE; Start 04/23/17 at 02: 30 Dextrose (D50w Syringe) 25 ml Q15M PRN IV DECREASED GLUCOSE; Start 04/23/17 at 02:30 Dextrose (D50w Syringe) 50 ml Q15M PRN IV DECREASED GLUCOSE; Start 04/23/17 at 02:30 Glucagon (Glucagen) 1 mg Q15M PRN IM DECREASED GLUCOSE; Start 04/23/17 at 02:30 Glucose 15 gm 15 gm Q15M PRN BUCCAL DECREASED GLUCOSE; Start 04/23/17 at 02:30 Vancomycin HCl 750 mg/Sodium Chloride 150 ml @ 75 mls/hr Q24H IVPB ; Start at 20:00 Dextrose (D5W) 1,000 ml @ 250 mls/hr Q4H IV Last administered on 9/19/17at 10: 08; Admin Dose 250 MLS/HR; Start 04/23/17 at 10:00; Stop 04/24/17 at 07:00 RACHELLE DASH MD Apr 23, 2017 11:30
[2017-04-23 11:57] LABS: ADD UMIC YES; UR ASCORBIC ACID NEGATIVE (NEGATIVE); UR BILIRUBIN (Dip) NEGATIVE (NEGATIVE); UR BLOOD (Dip) 2+ mg/dL (NEGATIVE); UR CLARITY SLIGHTLY CLOUDY (CLEAR); UR COLOR YELLOW (YELLOW); UR GLUCOSE (Dip) 3+ mg/dL (NEGATIVE); UR KETONES (Dip) NEGATIVE (NEGATIVE); UR LEUKOCYTE ESTERASE (Dip) NEGATIVE Leu/ul (NEGATIVE); UR MUCUS FEW /HPF (NONE SEEN); UR NITRITE (Dip) NEGATIVE (NEGATIVE); UR RBC 10 /HPF (0-5); UR SPECIFIC GRAVITY (Dip) 1.016 (1.003-1.030); UR TOTAL PROTEIN (Dip) 1+ mg/dl (NEGATIVE); UR UROBILINOGEN (Dip) NEGATIVE (NEGATIVE)
[2017-04-23] MEDS ORDERED: POTASSIUM CHLORIDE 10 MEQ in DEXTROSE 5% 1,000 ML IV SCH (12:00)
[2017-04-23 12:18] LABS: CALCIUM 8.7 mg/dl (8.4-10.2); CREATININE 1.63 mg/dl (0.61-1.24); POTASSIUM 4.2 mmol/L (3.5-5.1)
--- NOTE | 2017-04-23 13:03 | RADRPT ---
PROCEDURE: XR Chest. CLINICAL INDICATION: NG tube placement TECHNIQUE: Single frontal chest x-ray. COMPARISON: 04/22/2017 FINDINGS: There is interval placement of an enteric tube with the tip in the region of the gastric fundus. The sideport is just beyond the GE junction. There post CABG changes. Stable mild cardiomegaly and an s clerotic aortic calcification is seen. The pulmonary vessels are normal in caliber. The lungs are cl ear. The costophrenic angles are sharp. The visualized bony thorax is unremarkable. IMPRESSION: 1. Interval placement of enteric tube with the tip in the region of the gastric fundus. The sidepor t is just beyond the GE junction. 2. No acute cardiopulmonary disease. 3. Stable mild cardiomegaly and atherosclerotic aortic calcification RPTAT: JJ .Marshall Alvarez MD, Date Time Electronically viewed and signed by .Marshall Alvarez MD, on 04/23/2017 13:03 .A/
[2017-04-23 14:23] LABS: THYROID STIMULATING HORMONE 0.736 MIU/L (0.465-4.680)
[2017-04-23] MEDS: DEXTROSE 5% 1,000 ML IV SCH (15:47)
--- NOTE | 2017-04-23 17:14 | RADRPT ---
PROCEDURE: US Renal CLINICAL INDICATION: Acute renal failure. Elevated creatinine. TECHNIQUE: Multiple sonographic images of the kidneys and bladder were obtained. Evaluation of th e kidneys and bladder was performed as well with pierce scale and color and Doppler evaluation using a curved array transducer. The images were reviewed on a high-resolution PACS workstation. COMPARISON: No prior studies are available for comparison. FINDINGS: The right kidney measures 10.5 x 5.1 x 4.0 cm. The left kidney measures 10.3 x 5.5 x 4.8 cm. There is normal echogenicity within the parenchyma of the kidneys bilaterally. No evidence of hydronephrosis. There are is a 7 mm right renal calculus. There is a 1.9 x 1.4 x 1.8 cm right renal cyst.. No perinephric fluid collection is seen. There is a Wong catheter in the urinary bladder. IMPRESSION: 1. Nonobstructing right renal calculus. 2. 1.9 x 1.4 x 1.8 cm right renal cyst. RPTAT: [facility] Physician Luis Date Time Electronically viewed and signed by Physician Luis on 04/23/2017 17:14 /
[2017-04-23 18:32] LABS: CREATININE 1.48 mg/dl (0.61-1.24); POTASSIUM 3.7 mmol/L (3.5-5.1)
[2017-04-23] MEDS: INSULIN GLARGINE [LANtus] 3 ML PEN SC SCH (18:32)
[2017-04-23] MEDS ORDERED: VANCOMYCIN 750 MG in SOD CHLORIDE 0.9% 150 ML IVPB SCH (20:00)
[2017-04-23 21:43] LABS: CALCIUM 8.3 mg/dl (8.4-10.2); CREATININE 1.32 mg/dl (0.61-1.24); POTASSIUM 3.4 mmol/L (3.5-5.1)
--- NOTE | 2017-04-23 23:40 | CONS ---
DATE OF ADMISSION: 04/22/2017 DATE OF CONSULTATION: 04/23/2017 REASON FOR CONSULTATION: Antibiotic management. CHIEF COMPLAINT: Jason Scherer is a 71-year-old male who is admitted from [facility] with fever, shortness of breath and altered level of consciousness. PROBLEM LIST: 1. Hypertension. 2. Adult-onset diabetes. 3. Encephalopathy. 4. Bilateral cerebral vascular accidents with bilateral paresis. 5. Oropharyngeal dysphagia. 6. Coronary artery disease. 7. Chronic mental illness. 8. Right buttock decubitus ulcer status post incision and drainage. HISTORY OF PRESENT ILLNESS: Acutely, the patient comes in with what appears to be sepsis. His white count on admission was 22.9. H and H 15.6 and 51, platelet count 206,000. On the , today, his white count is 14.2. BUN and creatinine 52/1.63. Glucose random is up to 391. His urine is negative for nitrite and leukocyte esterase. Microbiology urine is no growth. Chest x-ray, no acute cardiopulmonary disease status post stable mild cardiomegaly and atherosclerotic aortic calcification. Chest x- ray shows interval placement of an enteric tube with the tip in the region of the gastric fundus. No acute cardiopulmonary disease, stable mild cardiomegaly, and atherosclerotic aortic calcifications. A CT scan of the brain shows old left MCA territory infarct with Wallerian degeneration of downstream corticospinal tracts. There is new cortical infarct in the posterior right temporal lobe that is likely chronic. Patchy low density changes in the supratentorial deep white matter are increased from prior exam, nonspecific, but likely due to chronic small-vessel ischemia. There is concern for recent ischemia, recommend MRI according to the radiology report. No acute intracranial mass effect. PAST MEDICAL AND PAST SURGICAL HISTORY: As outlined. FAMILY HISTORY: Noncontributory. SOCIAL HISTORY: He does not smoke, drink, or abuse drugs. ALLERGIES: NONE TO PENICILLIN, SULFA, OR FOODS. MEDICATIONS: Per chart. REVIEW OF SYSTEMS: As per HPI. PHYSICAL EXAMINATION: GENERAL: Patient is a well-developed, chronically ill-appearing male who is awake but noncommunicative in no acute distress. He has an NG tube, and he has Wong catheter. SKIN: Without generalized rash. HEENT: Within normal limits. NECK: Supple. Lymph nodes nonpalpable. CHEST: Decreased breath sounds at the bases. HEART: Without murmur or gallop. ABDOMEN: Soft, nontender without organosplenomegaly or masses. EXTREMITIES: Without cyanosis, clubbing or edema. RECTAL: Deferred. GENITOURINARY: Deferred. NEUROLOGICAL: No focal neurological abnormalities. IMPRESSION AND PLAN: Patient currently comes into the hospital with significant leukocytosis, etiology of which is unclear. He is started on vancomycin and cefepime, and his white count has come down subsequently from 22.9 to 14.2. He has had blood cultures drawn x2, methicillin-resistant Staphylococcus aureus screen and urine culture. Will await the culture reports on the blood. Will continue him on vancomycin and cefepime. I will dictate my findings to the hospitalist, and also to Dr. Isrrael Delgado for Nephrology since his BUN is 60/1.98, which could be prerenal. I will dictate my findings to the above physicians. Dictated By: Kurt Varner MD JD/maxwell/brain /Document#: [id number] CC: Isrrael Delgado MD;*[facility]*
[2017-04-24] VITALS (13 sets, daily range): BP systolic 96–125; BP diastolic 52–74; PULSE 68–79; RESP 17–20
[2017-04-24] MEDS: INSULIN ASPART [NOVOLOG] 3 ML PEN SC SCH ×6 (01:16→20:40)
[2017-04-24] MEDS: ACCU-CHEK XX SCH (02:00)
[2017-04-24] MEDS ORDERED: VANCOMYCIN 1.5 GM in SOD CHLORIDE 0.9% 250 ML IVPB ONE (03:00)
[2017-04-24] MEDS ORDERED: VANCOMYCIN IV PER PHARMACY XX SCH (03:00)
[2017-04-24] MEDS: DEXTROSE 5% 1,000 ML IV SCH (05:58)
[2017-04-24 08:16] LABS: BASOPHILS % 0.1 % (0.0-2.0); EOSINOPHILS # 0.3 10^3/ul (0.0-0.5); EOSINOPHILS % 2.8 % (0.0-7.0); HEMATOCRIT 37.9 % (42.0-52.0); HEMOGLOBIN 11.4 g/dl (14.0-18.0); LYMPHOCYTES # 2.1 10^3/ul (0.8-2.9); LYMPHOCYTES % 23.7 % (15.0-51.0); MEAN CORPUSCULAR HEMOGLOBIN 29.7 pg (29.0-33.0); MEAN CORPUSCULAR HGB CONC 30.1 g/dl (32.0-37.0); MEAN CORPUSCULAR VOLUME 98.7 fl (82.0-101.0); MEAN PLATELET VOLUME 12.8 fl (7.4-10.4); MONOCYTE # 0.3 10^3/ul (0.3-0.9); MONOCYTES % 3.6 % (0.0-11.0); NEUTROPHIL # 6.2 10^3/ul (1.6-7.5); NEUTROPHILS % 69.2 % (39.0-77.0); PLATELET COUNT 115 10^3/UL (140-415); RED BLOOD COUNT 3.84 10^6/ul (4.70-6.10); RED CELL DISTRIBUTION WIDTH 13.5 % (11.5-14.5); WHITE BLOOD COUNT 8.9 10^3/ul (4.8-10.8)
[2017-04-24 08:45] LABS: ALBUMIN 2.5 g/dl (3.3-4.9); ALBUMIN/GLOBULIN RATIO 0.83; BILIRUBIN,INDIRECT 0.8 mg/dl (0-1.1); BILIRUBIN,TOTAL 0.8 mg/dl (0.2-1.3); CALCIUM 8.4 mg/dl (8.4-10.2); CREATININE 1.12 mg/dl (0.61-1.24); MAGNESIUM 2.2 mg/dl (1.7-2.5); POTASSIUM 3.6 mmol/L (3.5-5.1); TOTAL PROTEIN 5.5 g/dl (6.1-8.1)
[2017-04-24] MEDS: INSULIN GLARGINE [LANtus] 3 ML PEN SC SCH (08:50)
[2017-04-24] MEDS: FAMOTIDINE 20 MG INJ IV SCH (09:52)
[2017-04-24] MEDS ORDERED: SOD CHLORIDE 0.9% 1,000 ML IV ONE (10:30)
[2017-04-24 11:19] LABS: CALCIUM 8.6 mg/dl (8.4-10.2); CREATININE 1.07 mg/dl (0.61-1.24); POTASSIUM 3.6 mmol/L (3.5-5.1)
--- NOTE | 2017-04-24 12:17 | CONS ---
Date/Time of Note Date/Time of Note DATE: 04/24/17 TIME: 12:17 Assessment/Plan Assessment/Plan Chief Complaint/Hosp Course Patient is lying comfortably in bed he is noncommunicative looks comfortable. Temperature 98 pulse 72 respirations 20 blood pressure 112/74 saturation 92% on 4 L nasal cannula WBC 8.9 H&H 11.4 and 37.9 platelets 150 neutrophils 79.2 BUN 35 creatinine 1.07 Blood culture on admission grew gram-positive cocci in pairs urine culture negative nare swab negative for MRSA Chest x-ray from yesterday revealed no acute cardiopulmonary disease Indwelling NG tube Wong catheter peripheral IV Antimicrobials patient remains on Vanco and cefepime Physical examination: General: Well-developed fragile elderly man who is in no distress. Head atraumatic normocephalic sclerae nonicteric. 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 Neck is supple chest rise symmetrical breath sounds diminished bases. Heart S1-S2. Abdomen soft bowel sounds present. Extremities without cyanosis. Assessment: 1. Sepsis with fevers leukocytosis acute encephalopathy 2. Gram-positive cocci bacteremia 3. Acute encephalopathy 4. Chronic kidney disease 5. Coronary artery disease status post CABG 6. Dysphasia Plan: Patient is stable, pending final cultures, continue antibiotics, aspiration precautions, repeat blood cultures today, consider 2D echo Problems: Consultation Date/Type/Reason Admit Date/Time Apr 22, 2017 at 22:01 Initial Consult Date 04/23/17 Type of Consultation: id Referring Provider: LEONA GOLDBERG Exam/Review of Systems Vital Signs Vitals Vital Signs Date Time Temp Pulse Resp B/P Pulse Ox O2 Delivery O2 Flow Rate FiO2 04/24/17 12:01 98.0 72 20 112/74 93 04/24/17 07:51 4.0 04/24/17 07:50 Nasal Cannula Intake and Output 04/23/17 04/23/17 04/24/17 15:00 23:00 07:00 Intake Total 850 ml 35 ml 1700 ml Output Total 580 ml 240 ml 650 ml Balance 270 ml -205 ml 1050 ml Results Result Diagram: 04/24/17 0730 04/24/17 1032 Results 24 hrs Laboratory Tests Test 04/23/17 12:45 04/23/17 13:39 04/23/17 17:53 04/23/17 18:05 Bedside Glucose 391 H 350 H Osmolality 349 H Sodium Level 152 H Potassium Level 3.7 Chloride Level 122 H Carbon Dioxide Level 26 Anion Gap 8 Blood Urea Nitrogen 46 H Creatinine 1.48 H Glucose Level 374 H Calcium Level 8.0 L Test 04/23/17 21:13 04/23/17 22:13 04/23/17 22:16 04/24/17 01:06 Sodium Level 152 H Potassium Level 3.4 L Chloride Level 121 H Carbon Dioxide Level 25 Anion Gap 9 Blood Urea Nitrogen 42 H Creatinine 1.32 H Glucose Level 388 H Calcium Level 8.3 L Bedside Glucose 399 H 364 H 381 H Test 04/24/17 01:08 04/24/17 05:24 04/24/17 07:30 04/24/17 08:09 Bedside Glucose 379 H 316 H 315 H White Blood Count 8.9 # Red Blood Count 3.84 L Hemoglobin 11.4 L Hematocrit 37.9 L Mean Corpuscular Volume 98.7 Mean Corpuscular Hemoglobin 29.7 Mean Corpuscular Hemoglobin Concent 30.1 L Red Cell Distribution Width 13.5 Platelet Count 115 L Mean Platelet Volume 12.8 H Neutrophils % 69.2 Lymphocytes % 23.7 Monocytes % 3.6 Eosinophils % 2.8 Basophils % 0.1 Nucleated Red Blood Cells % 0.0 Neutrophils # 6.2 Lymphocytes # 2.1 Monocytes # 0.3 Eosinophils # 0.3 Basophils # 0.0 Nucleated Red Blood Cells # 0.0 Sodium Level 152 H Potassium Level 3.6 Chloride Level 122 H Carbon Dioxide Level 25 Anion Gap 9 Blood Urea Nitrogen 36 H Creatinine 1.12 Glucose Level 347 H Calcium Level 8.4 Magnesium Level 2.2 Total Bilirubin 0.8 Direct Bilirubin 0.00 Indirect Bilirubin 0.8 Aspartate Amino Transf (AST/SGOT) 17 Alanine Aminotransferase (ALT/SGPT) 25 Alkaline Phosphatase 56 Total Protein 5.5 L Albumin 2.5 L Globulin 3.00 Albumin/Globulin Ratio 0.83 Test 04/24/17 10:32 Sodium Level 148 H Potassium Level 3.6 Chloride Level 119 H Carbon Dioxide Level 26 Anion Gap 7 L Blood Urea Nitrogen 35 H Creatinine 1.07 Glucose Level 345 H Calcium Level 8.6 Medications Medications Current Medications Ondansetron HCl (Zofran Inj) 4 mg Q6H PRN IV NAUSEA AND/OR VOMITING; Start at 22:00 Acetaminophen (Tylenol Supp) 650 mg Q4H PRN [place] PAIN LEVEL 1-3 OR FEVER; Start 04/22/17 at 22:00 Diagnostic Test (Pha) (Accu-Chek) 1 ea 02 XX Last administered on 04/23/17 02: 04; Admin Dose 1 EA; Start 04/23/17 at 02:00 Insulin Aspart (Novolog Insulin Pen) NOVOLOG *MODERATE* ALGORI... Q4 SC Last administered on 04/24/17 08:50; Admin Dose 10 UNIT; Start 04/23/17 at 01:00 Miscellaneous Information 1 ea NOTE XX ; Start 04/23/17 at 02:30 Glucose (Glutose) 15 gm Q15M PRN PO DECREASED GLUCOSE; Start 04/23/17 at 02:30 Glucose (Glutose) 22.5 gm Q15M PRN PO DECREASED GLUCOSE; Start 04/23/17 at 02: 30 Dextrose (D50w Syringe) 25 ml Q15M PRN IV DECREASED GLUCOSE; Start 04/23/17 at 02:30 Dextrose (D50w Syringe) 50 ml Q15M PRN IV DECREASED GLUCOSE; Start 04/23/17 at 02:30 Glucagon (Glucagen) 1 mg Q15M PRN IM DECREASED GLUCOSE; Start 04/23/17 at 02:30 Glucose 15 gm 15 gm Q15M PRN BUCCAL DECREASED GLUCOSE; Start 04/23/17 at 02:30 Dextrose (D5W) 1,000 ml @ 50 mls/hr Q20H IV Last administered on 04/24/17 05: 58; Admin Dose 50 MLS/HR; Start 04/23/17 at 15:00 Famotidine 20 mg 20 mg DAILY IV Last administered on 04/24/17 09:52; Admin Dose 20 MG; Start 04/24/17 at 09:00 Vancomycin HCl 250 ml @ 125 mls/hr Q24H IVPB ; Start 04/25/17 at 03:00 Cefepime HCl (Maxipime 1gm/50 ml (Pmx)) 50 ml @ 100 mls/hr Q12 IVPB ; Start at 10:30 Insulin Glargine (Lantus) 20 unit DAILY SC ; Start 04/25/17 at 09:00 MAGDI MILES NP Apr 24, 2017 12:17
[2017-04-24] MEDS: CEFEPIME 1GM/50 ML (PMX) 50 ML IVPB SCH ×2 (12:21→20:31)
--- NOTE | 2017-04-24 13:44 | PN ---
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 Found to have profound hypernatremia and possible bacteremia Hypernatremia: - Profound hyponatremia from poor PO intake - Continue NG feeds and IVF - Will have to discuss with family the patient's goals of care as this will inevitably recur BECKY: - Resolving with fluids DMII: - Increase basal, bolus insulin. Remains makredly hyperglycemic Vacsular dementia: - Continue aspirin and statin Discharge to [facility] Subjective 24 Hr Interval Summary Free Text/Dictation Patient given NG tube feeds and IV D5 Hypernatremia has improved Patient remains w dmeentia, unable to communicate but more alert BC growing GPCs Exam/Review of Systems Vital Signs Vitals Vital Signs Date Time Temp Pulse Resp B/P Pulse Ox O2 Delivery O2 Flow Rate FiO2 04/24/17 12:53 72 04/24/17 12:01 98.0 20 112/74 93 04/24/17 10:00 Nasal Cannula 04/24/17 07:51 4.0 Intake and Output 04/23/17 04/23/17 04/24/17 15:00 23:00 07:00 Intake Total 850 ml 35 ml 1700 ml Output Total 580 ml 240 ml 650 ml Balance 270 ml -205 ml 1050 ml Exam Alert, aphasia Cannot follow commands or interact Appears comfortable Facial droop Clear lungs RRR Euvolemic Results Result Diagram: 04/24/17 0730 04/24/17 1032 Results 24 hrs Laboratory Tests Test 04/23/17 13:39 04/23/17 17:53 04/23/17 18:05 04/23/17 21:13 Osmolality 349 H Bedside Glucose 350 H Sodium Level 152 H 152 H Potassium Level 3.7 3.4 L Chloride Level 122 H 121 H Carbon Dioxide Level 26 25 Anion Gap 8 9 Blood Urea Nitrogen 46 H 42 H Creatinine 1.48 H 1.32 H Glucose Level 374 H 388 H Calcium Level 8.0 L 8.3 L Test 04/23/17 22:13 04/23/17 22:16 04/24/17 01:06 04/24/17 01:08 Bedside Glucose 399 H 364 H 381 H 379 H Test 04/24/17 05:24 04/24/17 07:30 04/24/17 08:09 04/24/17 10:32 Bedside Glucose 316 H 315 H White Blood Count 8.9 # Red Blood Count 3.84 L Hemoglobin 11.4 L Hematocrit 37.9 L Mean Corpuscular Volume 98.7 Mean Corpuscular Hemoglobin 29.7 Mean Corpuscular Hemoglobin Concent 30.1 L Red Cell Distribution Width 13.5 Platelet Count 115 L Mean Platelet Volume 12.8 H Neutrophils % 69.2 Lymphocytes % 23.7 Monocytes % 3.6 Eosinophils % 2.8 Basophils % 0.1 Nucleated Red Blood Cells % 0.0 Neutrophils # 6.2 Lymphocytes # 2.1 Monocytes # 0.3 Eosinophils # 0.3 Basophils # 0.0 Nucleated Red Blood Cells # 0.0 Sodium Level 152 H 148 H Potassium Level 3.6 3.6 Chloride Level 122 H 119 H Carbon Dioxide Level 25 26 Anion Gap 9 7 L Blood Urea Nitrogen 36 H 35 H Creatinine 1.12 1.07 Glucose Level 347 H 345 H Calcium Level 8.4 8.6 Magnesium Level 2.2 Total Bilirubin 0.8 Direct Bilirubin 0.00 Indirect Bilirubin 0.8 Aspartate Amino Transf (AST/SGOT) 17 Alanine Aminotransferase (ALT/SGPT) 25 Alkaline Phosphatase 56 Total Protein 5.5 L Albumin 2.5 L Globulin 3.00 Albumin/Globulin Ratio 0.83 Test 04/24/17 12:22 Bedside Glucose 315 H Medications Medications Current Medications Ondansetron HCl (Zofran Inj) 4 mg Q6H PRN IV NAUSEA AND/OR VOMITING; Start at 22:00 Acetaminophen (Tylenol Supp) 650 mg Q4H PRN [place] PAIN LEVEL 1-3 OR FEVER; Start 04/22/17 at 22:00 Diagnostic Test (Pha) (Accu-Chek) 1 ea 02 XX Last administered on 04/23/17 02: 04; Admin Dose 1 EA; Start 04/23/17 at 02:00 Insulin Aspart (Novolog Insulin Pen) NOVOLOG *MODERATE* ALGORI... Q4 SC Last administered on 04/24/17 12:29; Admin Dose 10 UNIT; Start 04/23/17 at 01:00 Miscellaneous Information 1 ea NOTE XX ; Start 04/23/17 at 02:30 Glucose (Glutose) 15 gm Q15M PRN PO DECREASED GLUCOSE; Start 04/23/17 at 02:30 Glucose (Glutose) 22.5 gm Q15M PRN PO DECREASED GLUCOSE; Start 04/23/17 at 02: 30 Dextrose (D50w Syringe) 25 ml Q15M PRN IV DECREASED GLUCOSE; Start 04/23/17 at 02:30 Dextrose (D50w Syringe) 50 ml Q15M PRN IV DECREASED GLUCOSE; Start 04/23/17 at 02:30 Glucagon (Glucagen) 1 mg Q15M PRN IM DECREASED GLUCOSE; Start 04/23/17 at 02:30 Glucose 15 gm 15 gm Q15M PRN BUCCAL DECREASED GLUCOSE; Start 04/23/17 at 02:30 Dextrose (D5W) 1,000 ml @ 50 mls/hr Q20H IV Last administered on 04/24/17 05: 58; Admin Dose 50 MLS/HR; Start 04/23/17 at 15:00 Famotidine 20 mg 20 mg DAILY IV Last administered on 04/24/17 09:52; Admin Dose 20 MG; Start 04/24/17 at 09:00 Vancomycin HCl 250 ml @ 125 mls/hr Q24H IVPB ; Start 04/25/17 at 03:00 Cefepime HCl (Maxipime 1gm/50 ml (Pmx)) 50 ml @ 100 mls/hr Q12 IVPB Last administered on 04/24/17 12:21; Admin Dose 100 MLS/HR; Start 04/24/17 at 10:30 Insulin Glargine (Lantus) 20 unit DAILY SC ; Start 04/25/17 at 09:00 NISHA PRIDE MD Apr 24, 2017 13:44
--- NOTE | 2017-04-24 15:51 | CONS ---
Date/Time of Note Date/Time of Note DATE: 04/24/17 TIME: 15:48 Assessment/Plan Assessment/Plan Additional Assessment/Plan 1. BECKY on CKD III due to ATN from sepsis and due to prerenal azotemia 2. 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 Hypernatremia 4. Sepsis 5. Acute encephalopathy due to infectious and metabolic encephalopathy 6. H/o CAD S/p CABG 7. Hypertension 8. 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 Sacral decubitus ulcer on admission Plan: Cr improved to 1.07, na improved to 148 with IVF D5 W and Free water, BS running high, will d/c D5W and continue free water as ordered Free water 200cc Every 4 hour Expecting Renal function to improve with IV Fluids and IV abx Renal US to assess for kideny size, echogenicity and to rule out uhydronephrosis apprently pt has h/o CKD due to Diabetic nephropathy Continue current IV abx Consultation Date/Type/Reason Admit Date/Time Apr 22, 2017 at 22:01 Initial Consult Date 04/23/17 Type of Consultation: NEPHROLOGY Referring Provider: LEONA GOLDBERG 24 HR Interval Summary Free Text/Dictation doing ok, Bp stable, afebrile Exam/Review of Systems Vital Signs Vitals Vital Signs Date Time Temp Pulse Resp B/P Pulse Ox O2 Delivery O2 Flow Rate FiO2 04/24/17 12:53 72 04/24/17 12:01 98.0 20 112/74 93 04/24/17 12:00 3.0 04/24/17 10:00 Nasal Cannula Intake and Output 04/23/17 04/23/17 04/24/17 15:00 23:00 07:00 Intake Total 850 ml 35 ml 1700 ml Output Total 580 ml 240 ml 650 ml Balance 270 ml -205 ml 1050 ml Exam ENMT: other (NG tube in place ) Neck: non-tender, supple Respiratory: congested cough, crackles/rales, diminished breath sounds Cardiovascular: other (tachycardia ), regular rate and rhythm Gastrointestinal: non-tender, other (non distended, ), soft Musculoskeletal: muscle weakness, nl extremities to inspection Neurological: lethargic, but arousable Results Result Diagram: 04/24/17 0730 04/24/17 1032 Results 24 hrs Laboratory Tests Test 04/23/17 17:53 04/23/17 18:05 04/23/17 21:13 04/23/17 22:13 Bedside Glucose 350 H 399 H Sodium Level 152 H 152 H Potassium Level 3.7 3.4 L Chloride Level 122 H 121 H Carbon Dioxide Level 26 25 Anion Gap 8 9 Blood Urea Nitrogen 46 H 42 H Creatinine 1.48 H 1.32 H Glucose Level 374 H 388 H Calcium Level 8.0 L 8.3 L Test 04/23/17 22:16 04/24/17 01:06 04/24/17 01:08 04/24/17 05:24 Bedside Glucose 364 H 381 H 379 H 316 H Test 04/24/17 07:30 04/24/17 08:09 04/24/17 10:32 04/24/17 12:22 White Blood Count 8.9 # Red Blood Count 3.84 L Hemoglobin 11.4 L Hematocrit 37.9 L Mean Corpuscular Volume 98.7 Mean Corpuscular Hemoglobin 29.7 Mean Corpuscular Hemoglobin Concent 30.1 L Red Cell Distribution Width 13.5 Platelet Count 115 L Mean Platelet Volume 12.8 H Neutrophils % 69.2 Lymphocytes % 23.7 Monocytes % 3.6 Eosinophils % 2.8 Basophils % 0.1 Nucleated Red Blood Cells % 0.0 Neutrophils # 6.2 Lymphocytes # 2.1 Monocytes # 0.3 Eosinophils # 0.3 Basophils # 0.0 Nucleated Red Blood Cells # 0.0 Sodium Level 152 H 148 H Potassium Level 3.6 3.6 Chloride Level 122 H 119 H Carbon Dioxide Level 25 26 Anion Gap 9 7 L Blood Urea Nitrogen 36 H 35 H Creatinine 1.12 1.07 Glucose Level 347 H 345 H Calcium Level 8.4 8.6 Magnesium Level 2.2 Total Bilirubin 0.8 Direct Bilirubin 0.00 Indirect Bilirubin 0.8 Aspartate Amino Transf (AST/SGOT) 17 Alanine Aminotransferase (ALT/SGPT) 25 Alkaline Phosphatase 56 Total Protein 5.5 L Albumin 2.5 L Globulin 3.00 Albumin/Globulin Ratio 0.83 Bedside Glucose 315 H 315 H Medications Medications Current Medications Ondansetron HCl (Zofran Inj) 4 mg Q6H PRN IV NAUSEA AND/OR VOMITING; Start at 22:00 Acetaminophen (Tylenol Supp) 650 mg Q4H PRN [place] PAIN LEVEL 1-3 OR FEVER; Start 04/22/17 at 22:00 Diagnostic Test (Pha) (Accu-Chek) 1 ea 02 XX Last administered on 04/23/17 02: 04; Admin Dose 1 EA; Start 04/23/17 at 02:00 Insulin Aspart (Novolog Insulin Pen) NOVOLOG *MODERATE* ALGORI... Q4 SC Last administered on 04/24/17 12:29; Admin Dose 10 UNIT; Start 04/23/17 at 01:00 Miscellaneous Information 1 ea NOTE XX ; Start 04/23/17 at 02:30 Glucose (Glutose) 15 gm Q15M PRN PO DECREASED GLUCOSE; Start 04/23/17 at 02:30 Glucose (Glutose) 22.5 gm Q15M PRN PO DECREASED GLUCOSE; Start 04/23/17 at 02: 30 Dextrose (D50w Syringe) 25 ml Q15M PRN IV DECREASED GLUCOSE; Start 04/23/17 at 02:30 Dextrose (D50w Syringe) 50 ml Q15M PRN IV DECREASED GLUCOSE; Start 04/23/17 at 02:30 Glucagon (Glucagen) 1 mg Q15M PRN IM DECREASED GLUCOSE; Start 04/23/17 at 02:30 Glucose 15 gm 15 gm Q15M PRN BUCCAL DECREASED GLUCOSE; Start 04/23/17 at 02:30 Dextrose (D5W) 1,000 ml @ 50 mls/hr Q20H IV Last administered on 04/24/17 05: 58; Admin Dose 50 MLS/HR; Start 04/23/17 at 15:00 Famotidine 20 mg 20 mg DAILY IV Last administered on 04/24/17 09:52; Admin Dose 20 MG; Start 04/24/17 at 09:00 Vancomycin HCl 250 ml @ 125 mls/hr Q24H IVPB ; Start 04/25/17 at 03:00 Cefepime HCl (Maxipime 1gm/50 ml (Pmx)) 50 ml @ 100 mls/hr Q12 IVPB Last administered on 04/24/17 12:21; Admin Dose 100 MLS/HR; Start 04/24/17 at 10:30 Insulin Glargine (Lantus) 20 unit DAILY SC ; Start 04/25/17 at 09:00 RACHELLE DASH MD Apr 24, 2017 15:51
[2017-04-25] VITALS (17 sets, daily range): BP systolic 120–163; BP diastolic 60–98; PULSE 70–96; RESP 17–20
[2017-04-25] MEDS: INSULIN ASPART [NOVOLOG] 3 ML PEN SC SCH ×6 (01:46→20:25)
[2017-04-25] MEDS: ACCU-CHEK XX SCH (02:05)
[2017-04-25] MEDS ORDERED: VANCOMYCIN 1 GM in NS 250 ML IVPB SCH (03:00)
[2017-04-25 07:16] LABS: ABNORMAL IP MESSAGE 1; BASOPHILS % 0.2 % (0.0-2.0); EOSINOPHILS # 0.2 10^3/ul (0.0-0.5); EOSINOPHILS % 2.3 % (0.0-7.0); HEMATOCRIT 33.9 % (42.0-52.0); HEMOGLOBIN 10.9 g/dl (14.0-18.0); LYMPHOCYTES # 1.7 10^3/ul (0.8-2.9); LYMPHOCYTES % 25.6 % (15.0-51.0); MEAN CORPUSCULAR HEMOGLOBIN 30.7 pg (29.0-33.0); MEAN CORPUSCULAR HGB CONC 32.2 g/dl (32.0-37.0); MEAN CORPUSCULAR VOLUME 95.5 fl (82.0-101.0); MEAN PLATELET VOLUME 12.2 fl (7.4-10.4); MONOCYTE # 0.3 10^3/ul (0.3-0.9); MONOCYTES % 4.8 % (0.0-11.0); NEUTROPHIL # 4.3 10^3/ul (1.6-7.5); NEUTROPHILS % 66.5 % (39.0-77.0); PLATELET COUNT 97 10^3/UL (140-415); POSITIVE DIFF @See below; RED BLOOD COUNT 3.55 10^6/ul (4.70-6.10); RED CELL DISTRIBUTION WIDTH 13.2 % (11.5-14.5); WHITE BLOOD COUNT 6.4 10^3/ul (4.8-10.8)
[2017-04-25 08:54] LABS: ALBUMIN 2.4 g/dl (3.3-4.9); ALBUMIN/GLOBULIN RATIO 0.8; BILIRUBIN,INDIRECT 0.7 mg/dl (0-1.1); BILIRUBIN,TOTAL 0.7 mg/dl (0.2-1.3); CALCIUM 8.8 mg/dl (8.4-10.2); CREATININE 0.87 mg/dl (0.61-1.24); MAGNESIUM 2.3 mg/dl (1.7-2.5); POTASSIUM 3.7 mmol/L (3.5-5.1); TOTAL PROTEIN 5.4 g/dl (6.1-8.1)
--- NOTE | 2017-04-25 08:58 | RADRPT ---
Echocardiogram Report Patient Name: JOSE A LI Gender: Male Date: 1945 Study Date: 24-Apr-2017 [employer] Operator: Sd Pritchett FLORESITA Location: [id number] Ref. Physician: NISHA PRIDE Quality: Good Procedures: Transthoracic echocardiogram with complete 2D, M-Mode, and doppler examination. Indications: bacteremia, concern for endocarditis. 2D/M Mode Doppler Measurement Value Normal Ranges Measurement Value Normal Ranges LVIDd 2D 4.4 3.5 - 5.6 cm AV Peak Gary 1.4 m/sec LVIDs 2D 2.7 2.1 - 4.1 cm AV Peak PG 8.0 mmHg FS 2D 38.0 % AI Peak PG 16.0 mmHg LVPWd 2D 1.8 0.6 - 1.1 cm AI Peak Gary 2.0 m/sec IVSd 2D 1.8 0.6 - 1.1 cm AI PHT 529.0 msec IVS/LVPW 2D 1.0 LVOT Peak Gary 1.0 m/sec AoR Diam 2D 3.4 2.0 - 3.7 cm LVOT Peak PG 4.0 mmHg LA/Ao 2D 1 0 - 1 MV E Peak Gary 0.6 m/sec EDV 2D 84.6 cm3 MV A Peak Gary 0.7 m/sec ESV 2D 20.1 cm3 MV E/A 0.8 LA Dimen 2D 2.5 2.3 - 4.0 cm MV Decel Time 345 msec MV E/A 0.8 TR Peak Gary 1.8 m/sec TR Peak PG 13.0 mmHg RVSP 15.0 mmHg Findings Left Ventricle: Normal left ventricular systolic function. Normal left ventricular cavity size. Severe concentric left ventricular hypertrophy. Ejection fraction is visually estimated at 65 %. Tissue Doppler/Mitral Doppler indices are consistent with impaired relaxation (Stage I diastolic dysfunction). Right Ventricle: Normal right ventricular size. Normal right ventricular systolic function. Left Atrium: The left atrium is normal in size. Right Atrium: The right atrium is normal in size. Mitral Valve: Normal appearance and function of the mitral valve with trace physiologic regurgitation. Aortic Valve: Aortic sclerosis without stenosis. Trileaflet aortic valve. Trace to mild aortic valve regurgitation. Tricuspid Valve: Normal appearance of the tricuspid valve. Estimated peak PA systolic pressure 15 mmHg. There is trace tricuspid regurgitation. Pulmonic Valve: Pulmonic valve not well visualized. There is trace pulmonic regurgitation. Pericardium: Normal pericardium with no significant pericardial effusion. Aorta: Normal aortic root. IVC: Normal size and normal respiratory collapse consistent with normal right atrial pressure. Conclusions 1.Normal left ventricular systolic function. Normal left ventricular cavity size. Severe concentric left ventricular hypertrophy. Ejection fraction is visually estimated at 65 %. Tissue Doppler/Mitral Doppler indices are consistent with impaired relaxation (Stage I diastolic dysfunction). 2.Normal appearance and function of the mitral valve with trace physiologic regurgitation. 3.Aortic sclerosis without stenosis. Trileaflet aortic valve. Trace to mild aortic valve regurgitation. 4.Normal appearance of the tricuspid valve. Estimated peak PA systolic pressure 15 mmHg. There is trace tricuspid regurgitation. Electronically Signed By: Roni Aquino 25-Apr-2017 08:58:11 -0700 Patient Name: JOSE A LI Study Date: 24-Apr-2017 [id number]
[2017-04-25] MEDS ORDERED: INSULIN GLARGINE [LANtus] 3 ML PEN SC SCH (09:00)
[2017-04-25] MEDS: CEFEPIME 1GM/50 ML (PMX) 50 ML IVPB SCH ×2 (09:32→20:15)
[2017-04-25] MEDS: FAMOTIDINE 20 MG INJ IV SCH (09:33)
--- NOTE | 2017-04-25 15:10 | CONS ---
Date/Time of Note Date/Time of Note DATE: 04/25/17 TIME: 15:09 Assessment/Plan Assessment/Plan Chief Complaint/Hosp Course Awake, noncommunicative, looks comfortable Temperature 98.3 pulse 72 respirations 18 blood pressure 158/98 saturation 95 on room air WBC 6.4 H&H 10.9 and 33.9 platelets 97 no shift BUN 23 creatinine 0.87 Blood culture on admission grew staph species, repeat blood cultures negative, urine culture negative Indwelling NG tube Wong catheter peripheral IV Antimicrobials patient remains on Vanco and cefepime Physical examination: General: Well-developed fragile elderly man who is in no distress. Head atraumatic normocephalic sclerae nonicteric. 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 Neck is supple chest rise symmetrical breath sounds diminished bases. Heart S1-S2. Abdomen soft bowel sounds present. Extremities without cyanosis. Assessment: 1. Sepsis with fevers leukocytosis acute encephalopathy 2. Staph bacteremia, likely a contaminant 3. Acute encephalopathy 4. Chronic kidney disease 5. Coronary artery disease status post CABG 6. Dysphasia Plan: Patient is stable, continue antibiotics, aspiration precautions, pending repeat blood cultures Problems: Consultation Date/Type/Reason Admit Date/Time Apr 22, 2017 at 22:01 Initial Consult Date 04/23/17 Type of Consultation: id Referring Provider: LEONA GOLDBERG Exam/Review of Systems Vital Signs Vitals Vital Signs Date Time Temp Pulse Resp B/P Pulse Ox O2 Delivery O2 Flow Rate FiO2 04/25/17 14:37 98.3 72 18 158/98 95 Room Air 04/25/17 08:13 1.0 Intake and Output 04/24/17 04/24/17 04/25/17 15:00 23:00 07:00 Intake Total 680 ml Output Total 850 ml Balance -170 ml Results Result Diagram: 04/25/17 0706 04/25/17 0706 Results 24 hrs Laboratory Tests Test 04/24/17 17:28 04/24/17 20:32 04/25/17 01:40 04/25/17 05:12 Bedside Glucose 286 H 287 H 322 H 286 H Test 04/25/17 07:06 04/25/17 09:33 04/25/17 12:43 White Blood Count 6.4 # Red Blood Count 3.55 L Hemoglobin 10.9 L Hematocrit 33.9 L Mean Corpuscular Volume 95.5 Mean Corpuscular Hemoglobin 30.7 Mean Corpuscular Hemoglobin Concent 32.2 Red Cell Distribution Width 13.2 Platelet Count 97 L Mean Platelet Volume 12.2 H Neutrophils % 66.5 Lymphocytes % 25.6 Monocytes % 4.8 Eosinophils % 2.3 Basophils % 0.2 Nucleated Red Blood Cells % 0.0 Neutrophils # 4.3 Lymphocytes # 1.7 Monocytes # 0.3 Eosinophils # 0.2 Basophils # 0.0 Nucleated Red Blood Cells # 0.0 Sodium Level 146 H Potassium Level 3.7 Chloride Level 116 H Carbon Dioxide Level 27 Anion Gap 7 L Blood Urea Nitrogen 23 #H Creatinine 0.87 Glucose Level 295 H Calcium Level 8.8 Magnesium Level 2.3 Total Bilirubin 0.7 Direct Bilirubin 0.00 Indirect Bilirubin 0.7 Aspartate Amino Transf (AST/SGOT) 19 Alanine Aminotransferase (ALT/SGPT) 27 Alkaline Phosphatase 58 Total Protein 5.4 L Albumin 2.4 L Globulin 3.00 Albumin/Globulin Ratio 0.80 Bedside Glucose 313 H 275 H Medications Medications Current Medications Ondansetron HCl (Zofran Inj) 4 mg Q6H PRN IV NAUSEA AND/OR VOMITING; Start at 22:00 Acetaminophen (Tylenol Supp) 650 mg Q4H PRN [place] PAIN LEVEL 1-3 OR FEVER; Start 04/22/17 at 22:00 Diagnostic Test (Pha) (Accu-Chek) 1 ea 02 XX Last administered on 04/25/17 02: 05; Admin Dose 1 EA; Start 04/23/17 at 02:00 Insulin Aspart (Novolog Insulin Pen) NOVOLOG *MODERATE* ALGORI... Q4 SC Last administered on 04/25/17 12:53; Admin Dose 8 UNIT; Start 04/23/17 at 01:00 Miscellaneous Information 1 ea NOTE XX ; Start 04/23/17 at 02:30 Glucose (Glutose) 15 gm Q15M PRN PO DECREASED GLUCOSE; Start 04/23/17 at 02:30 Glucose (Glutose) 22.5 gm Q15M PRN PO DECREASED GLUCOSE; Start 04/23/17 at 02: 30 Dextrose (D50w Syringe) 25 ml Q15M PRN IV DECREASED GLUCOSE; Start 04/23/17 at 02:30 Dextrose (D50w Syringe) 50 ml Q15M PRN IV DECREASED GLUCOSE; Start 04/23/17 at 02:30 Glucagon (Glucagen) 1 mg Q15M PRN IM DECREASED GLUCOSE; Start 04/23/17 at 02:30 Glucose (Glutose) 15 gm Q15M PRN BUCCAL DECREASED GLUCOSE; Start 04/23/17 at 02 :30 Famotidine 20 mg 20 mg DAILY IV Last administered on 04/25/17 09:33; Admin Dose 20 MG; Start 04/24/17 at 09:00 Cefepime HCl (Maxipime 1gm/50 ml (Pmx)) 50 ml @ 100 mls/hr Q12 IVPB Last administered on 04/25/17 09:32; Admin Dose 100 MLS/HR; Start 04/24/17 at 10:30 Insulin Glargine 25 unit 25 unit DAILY SC ; Start 04/26/17 at 09:00 Vancomycin HCl/ Sodium Chloride (Vancocin/NS) 150 ml @ 75 mls/hr Q12H IVPB ; Start 04/25/17 at 18:00 Miscellaneous Information (*Rx Drug Level Order Reminder*) VANCO TROUGH @ 1, 700 ON... ONCE ONCE XX ; Start 04/26/17 at 17:00; Stop 04/26/17 at 17:01 MAGDI MILES NP Apr 25, 2017 15:10
--- NOTE | 2017-04-25 16:39 | PN ---
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 Found to have profound hypernatremia and bacteremia Hypernatremia: - Profound hyponatremia from poor PO intake - Continue NG feeds and IVF - Will have to discuss with family the patient's goals of care as this will inevitably recur BECKY: - Resolved with fluids DMII: - Increase basal, bolus insulin. Remains markedly hyperglycemic Vacsular dementia: - Continue aspirin and statin Staph bacteremia: - Continue vancomycin/cefepime, await speciation. TTE wihtout vegetation - Surveillance cultures Discharge to longterm Problems: Subjective 24 Hr Interval Summary Free Text/Dictation Minimal change to clincial status Remains nonverbal Hypernatremia imrppoved Exam/Review of Systems Vital Signs Vitals Vital Signs Date Time Temp Pulse Resp B/P Pulse Ox O2 Delivery O2 Flow Rate FiO2 04/25/17 14:37 98.3 72 18 158/98 95 Room Air 04/25/17 08:13 1.0 Intake and Output 04/24/17 04/24/17 04/25/17 15:00 23:00 07:00 Intake Total 680 ml Output Total 850 ml Balance -170 ml Exam Alert, nonverbal No response to commands NG tube in place No distress Results Result Diagram: 04/25/17 0706 04/25/17 0706 Results 24 hrs Laboratory Tests Test 04/24/17 17:28 04/24/17 20:32 04/25/17 01:40 04/25/17 05:12 Bedside Glucose 286 H 287 H 322 H 286 H Test 04/25/17 07:06 04/25/17 09:33 04/25/17 12:43 White Blood Count 6.4 # Red Blood Count 3.55 L Hemoglobin 10.9 L Hematocrit 33.9 L Mean Corpuscular Volume 95.5 Mean Corpuscular Hemoglobin 30.7 Mean Corpuscular Hemoglobin Concent 32.2 Red Cell Distribution Width 13.2 Platelet Count 97 L Mean Platelet Volume 12.2 H Neutrophils % 66.5 Lymphocytes % 25.6 Monocytes % 4.8 Eosinophils % 2.3 Basophils % 0.2 Nucleated Red Blood Cells % 0.0 Neutrophils # 4.3 Lymphocytes # 1.7 Monocytes # 0.3 Eosinophils # 0.2 Basophils # 0.0 Nucleated Red Blood Cells # 0.0 Sodium Level 146 H Potassium Level 3.7 Chloride Level 116 H Carbon Dioxide Level 27 Anion Gap 7 L Blood Urea Nitrogen 23 #H Creatinine 0.87 Glucose Level 295 H Calcium Level 8.8 Magnesium Level 2.3 Total Bilirubin 0.7 Direct Bilirubin 0.00 Indirect Bilirubin 0.7 Aspartate Amino Transf (AST/SGOT) 19 Alanine Aminotransferase (ALT/SGPT) 27 Alkaline Phosphatase 58 Total Protein 5.4 L Albumin 2.4 L Globulin 3.00 Albumin/Globulin Ratio 0.80 Bedside Glucose 313 H 275 H Medications Medications Current Medications Ondansetron HCl (Zofran Inj) 4 mg Q6H PRN IV NAUSEA AND/OR VOMITING; Start at 22:00 Acetaminophen (Tylenol Supp) 650 mg Q4H PRN [place] PAIN LEVEL 1-3 OR FEVER; Start 04/22/17 at 22:00 Diagnostic Test (Pha) (Accu-Chek) 1 ea 02 XX Last administered on 04/25/17 02: 05; Admin Dose 1 EA; Start 04/23/17 at 02:00 Insulin Aspart (Novolog Insulin Pen) NOVOLOG *MODERATE* ALGORI... Q4 SC Last administered on 04/25/17 12:53; Admin Dose 8 UNIT; Start 04/23/17 at 01:00 Miscellaneous Information 1 ea NOTE XX ; Start 04/23/17 at 02:30 Glucose (Glutose) 15 gm Q15M PRN PO DECREASED GLUCOSE; Start 04/23/17 at 02:30 Glucose (Glutose) 22.5 gm Q15M PRN PO DECREASED GLUCOSE; Start 04/23/17 at 02: 30 Dextrose (D50w Syringe) 25 ml Q15M PRN IV DECREASED GLUCOSE; Start 04/23/17 at 02:30 Dextrose (D50w Syringe) 50 ml Q15M PRN IV DECREASED GLUCOSE; Start 04/23/17 at 02:30 Glucagon (Glucagen) 1 mg Q15M PRN IM DECREASED GLUCOSE; Start 04/23/17 at 02:30 Glucose (Glutose) 15 gm Q15M PRN BUCCAL DECREASED GLUCOSE; Start 04/23/17 at 02 :30 Famotidine 20 mg 20 mg DAILY IV Last administered on 04/25/17 09:33; Admin Dose 20 MG; Start 04/24/17 at 09:00 Cefepime HCl (Maxipime 1gm/50 ml (Pmx)) 50 ml @ 100 mls/hr Q12 IVPB Last administered on 04/25/17 09:32; Admin Dose 100 MLS/HR; Start 04/24/17 at 10:30 Insulin Glargine 25 unit 25 unit DAILY@08 SC ; Start 04/26/17 at 08:00 Vancomycin HCl/ Sodium Chloride (Vancocin/NS) 150 ml @ 75 mls/hr Q12H IVPB ; Start 04/25/17 at 18:00 Miscellaneous Information (*Rx Drug Level Order Reminder*) VANCO TROUGH @ 1, 700 ON... ONCE ONCE XX ; Start 04/26/17 at 17:00; Stop 04/26/17 at 17:01 NISHA PRIDE MD Apr 25, 2017 16:39
--- NOTE | 2017-04-25 16:50 | CONS ---
Date/Time of Note Date/Time of Note DATE: 04/25/17 TIME: 16:49 Assessment/Plan Assessment/Plan Additional Assessment/Plan 1. BECKY on CKD III due to ATN from sepsis and due to prerenal azotemia 2. 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 Hypernatremia 4. Sepsis 2/2 Bacteremia, Staphylococcal bacteremia 5. Acute encephalopathy due to infectious and metabolic encephalopathy 6. H/o CAD S/p CABG 7. Hypertension 8. [facility] 9. Sacral decubitus ulcer on admission Plan: Cr imrpoved to normal, Na 146, K 3.7- Off D5W, continue free water as ordered Free water 200cc Every 4 hour Expecting Renal function to improve with IV Fluids and IV abx Renal US showed normal echogenicity , small size kidney compared to normal apprently pt has h/o CKD due to Diabetic nephropathy Continue current IV abx will follow up Consultation Date/Type/Reason Admit Date/Time Apr 22, 2017 at 22:01 Initial Consult Date 04/23/17 Type of Consultation: NEPHROLOGY Referring Provider: LEONA GOLDBERG Exam/Review of Systems Vital Signs Vitals Vital Signs Date Time Temp Pulse Resp B/P Pulse Ox O2 Delivery O2 Flow Rate FiO2 04/25/17 16:37 81 04/25/17 14:37 98.3 18 158/98 95 Room Air 04/25/17 08:13 1.0 Intake and Output 04/24/17 04/24/17 04/25/17 15:00 23:00 07:00 Intake Total 680 ml Output Total 850 ml Balance -170 ml Results Result Diagram: 04/25/17 0706 04/25/17 0706 Results 24 hrs Laboratory Tests Test 04/24/17 17:28 04/24/17 20:32 04/25/17 01:40 04/25/17 05:12 Bedside Glucose 286 H 287 H 322 H 286 H Test 04/25/17 07:06 04/25/17 09:33 04/25/17 12:43 White Blood Count 6.4 # Red Blood Count 3.55 L Hemoglobin 10.9 L Hematocrit 33.9 L Mean Corpuscular Volume 95.5 Mean Corpuscular Hemoglobin 30.7 Mean Corpuscular Hemoglobin Concent 32.2 Red Cell Distribution Width 13.2 Platelet Count 97 L Mean Platelet Volume 12.2 H Neutrophils % 66.5 Lymphocytes % 25.6 Monocytes % 4.8 Eosinophils % 2.3 Basophils % 0.2 Nucleated Red Blood Cells % 0.0 Neutrophils # 4.3 Lymphocytes # 1.7 Monocytes # 0.3 Eosinophils # 0.2 Basophils # 0.0 Nucleated Red Blood Cells # 0.0 Sodium Level 146 H Potassium Level 3.7 Chloride Level 116 H Carbon Dioxide Level 27 Anion Gap 7 L Blood Urea Nitrogen 23 #H Creatinine 0.87 Glucose Level 295 H Calcium Level 8.8 Magnesium Level 2.3 Total Bilirubin 0.7 Direct Bilirubin 0.00 Indirect Bilirubin 0.7 Aspartate Amino Transf (AST/SGOT) 19 Alanine Aminotransferase (ALT/SGPT) 27 Alkaline Phosphatase 58 Total Protein 5.4 L Albumin 2.4 L Globulin 3.00 Albumin/Globulin Ratio 0.80 Bedside Glucose 313 H 275 H Medications Medications Current Medications Ondansetron HCl (Zofran Inj) 4 mg Q6H PRN IV NAUSEA AND/OR VOMITING; Start at 22:00 Acetaminophen (Tylenol Supp) 650 mg Q4H PRN [place] PAIN LEVEL 1-3 OR FEVER; Start 04/22/17 at 22:00 Diagnostic Test (Pha) (Accu-Chek) 1 ea 02 XX Last administered on 04/25/17 02: 05; Admin Dose 1 EA; Start 04/23/17 at 02:00 Insulin Aspart (Novolog Insulin Pen) NOVOLOG *MODERATE* ALGORI... Q4 SC Last administered on 04/25/17 12:53; Admin Dose 8 UNIT; Start 04/23/17 at 01:00 Miscellaneous Information 1 ea NOTE XX ; Start 04/23/17 at 02:30 Glucose (Glutose) 15 gm Q15M PRN PO DECREASED GLUCOSE; Start 04/23/17 at 02:30 Glucose (Glutose) 22.5 gm Q15M PRN PO DECREASED GLUCOSE; Start 04/23/17 at 02: 30 Dextrose (D50w Syringe) 25 ml Q15M PRN IV DECREASED GLUCOSE; Start 04/23/17 at 02:30 Dextrose (D50w Syringe) 50 ml Q15M PRN IV DECREASED GLUCOSE; Start 04/23/17 at 02:30 Glucagon (Glucagen) 1 mg Q15M PRN IM DECREASED GLUCOSE; Start 04/23/17 at 02:30 Glucose (Glutose) 15 gm Q15M PRN BUCCAL DECREASED GLUCOSE; Start 04/23/17 at 02 :30 Famotidine 20 mg 20 mg DAILY IV Last administered on 04/25/17 09:33; Admin Dose 20 MG; Start 04/24/17 at 09:00 Cefepime HCl (Maxipime 1gm/50 ml (Pmx)) 50 ml @ 100 mls/hr Q12 IVPB Last administered on 04/25/17 09:32; Admin Dose 100 MLS/HR; Start 04/24/17 at 10:30 Insulin Glargine 25 unit 25 unit DAILY@08 SC ; Start 04/26/17 at 08:00 Vancomycin HCl/ Sodium Chloride (Vancocin/NS) 150 ml @ 75 mls/hr Q12H IVPB ; Start 04/25/17 at 18:00 Miscellaneous Information (*Rx Drug Level Order Reminder*) VANCO TROUGH @ 1, 700 ON... ONCE ONCE XX ; Start 04/26/17 at 17:00; Stop 04/26/17 at 17:01 RACHELLE DASH MD Apr 25, 2017 16:50
[2017-04-25] MEDS: VANCOMYCIN 750 MG in SOD CHLORIDE 0.9% 150 ML IVPB SCH (17:22)
--- NOTE | 2017-04-25 19:47 | RADRPT ---
PROCEDURE: X-ray Chest. CLINICAL INDICATION: NG tube placement. TECHNIQUE: Single view chest x-ray. COMPARISON: Exam dated 04/23/2017. FINDINGS: There has been prior median sternotomy. No NG tube is identified. There are atheroscleroti c changes of the aorta. The cardiomediastinal silhouette is within normal limits. There is increase d patchy parenchymal opacity in the lateral right upper lung zone. The left lung is clear. There is no effusion or pneumothorax, with evaluation of the left lung apex partially obscured by the density the patient's chin. There are no acute osseous abnormalities. IMPRESSION: 1. No NG tube is identified, as questioned. Direct visualization of the patient's NG tube is theref ore recommended. 2. Vascular calcifications consistent with atherosclerosis. 3. Increased patchy parenchymal opacity in the lateral right upper lung zone. RPTAT: [facility]BP .Franki Andujar MD, Date Time Electronically viewed and signed by .Franki Andujar MD, on 04/25/2017 19:46 .P/
[2017-04-26] VITALS (22 sets, daily range): BP systolic 109–150; BP diastolic 54–96; PULSE 76–155; RESP 17–20
--- NOTE | 2017-04-26 00:32 | RADRPT ---
PROCEDURE: Portable chest x-ray. CLINICAL INDICATION: 71 years of age, male. Enteric tube placement. TECHNIQUE: Portable AP view of the chest. COMPARISON: None available. FINDINGS: There is an enteric tube that courses below diaphragm with the tip at the gastric fundus. Sternal wires and mediastinal clips from previous cardiac surgery. Tortuous aorta. Borderline heart size. Mediastinal contours are stable. There is a wire projected ov er the left hilum that may represent an abandoned epicardial pacing wire that is unchanged. Decreased lung volumes with vascular crowding. There is bibasilar atelectasis. Negative for pleural effusion or pneumothorax. Bones are osteopenic. IMPRESSION: Enteric tube courses below diaphragm with tip over gastric fundus. Decreased lung volumes with bibasilar atelectasis. RPTAT: HCTS Physician Anastasia Date Time Electronically viewed and signed by Summer Quach Physician on 04/26/2017 00:32 /
[2017-04-26] MEDS: INSULIN ASPART [NOVOLOG] 3 ML PEN SC SCH ×6 (00:41→21:38)
[2017-04-26] MEDS: ACCU-CHEK XX SCH (02:55)
[2017-04-26] MEDS: VANCOMYCIN 750 MG in SOD CHLORIDE 0.9% 150 ML IVPB SCH (05:14)
[2017-04-26 07:50] LABS: BASOPHILS % 0.3 % (0.0-2.0); EOSINOPHILS # 0.1 10^3/ul (0.0-0.5); EOSINOPHILS % 1.9 % (0.0-7.0); HEMATOCRIT 35.4 % (42.0-52.0); HEMOGLOBIN 11.3 g/dl (14.0-18.0); LYMPHOCYTES # 1.8 10^3/ul (0.8-2.9); LYMPHOCYTES % 25.9 % (15.0-51.0); MEAN CORPUSCULAR HGB CONC 31.9 g/dl (32.0-37.0); MEAN CORPUSCULAR VOLUME 93.9 fl (82.0-101.0); MEAN PLATELET VOLUME 12.7 fl (7.4-10.4); MONOCYTE # 0.3 10^3/ul (0.3-0.9); NEUTROPHIL # 4.5 10^3/ul (1.6-7.5); NEUTROPHILS % 66.5 % (39.0-77.0); PLATELET COUNT 103 10^3/UL (140-415); RED BLOOD COUNT 3.77 10^6/ul (4.70-6.10); RED CELL DISTRIBUTION WIDTH 13.2 % (11.5-14.5); WHITE BLOOD COUNT 6.8 10^3/ul (4.8-10.8)
[2017-04-26] MEDS ORDERED: INSULIN GLARGINE [LANtus] 3 ML PEN SC SCH (08:00)
[2017-04-26] MEDS: CEFEPIME 1GM/50 ML (PMX) 50 ML IVPB SCH (08:46)
[2017-04-26] MEDS: FAMOTIDINE 20 MG INJ IV SCH (08:46)
[2017-04-26 10:07] LABS: ALBUMIN 2.7 g/dl (3.3-4.9); ALBUMIN/GLOBULIN RATIO 0.84; CALCIUM 8.7 mg/dl (8.4-10.2); CREATININE 0.83 mg/dl (0.61-1.24); POTASSIUM 3.7 mmol/L (3.5-5.1); TOTAL PROTEIN 5.9 g/dl (6.1-8.1)
[2017-04-26 10:20] LABS: BILIRUBIN,INDIRECT 0.7 mg/dl (0-1.1); BILIRUBIN,TOTAL 0.7 mg/dl (0.2-1.3)
[2017-04-26] MEDS ORDERED: INSULIN GLARGINE [LANtus] 3 ML PEN SC ONE (10:35)
--- NOTE | 2017-04-26 15:10 | CONS ---
Date/Time of Note Date/Time of Note DATE: 04/26/17 TIME: 15:09 Assessment/Plan Assessment/Plan Chief Complaint/Hosp Course No acute events overnight patient looks comfortable, no fevers Temperature 98.5 pulse 85 respirations 20 blood pressure 126/75 saturation 100 on nasal cannula WBC 6.8 platelets 103 neutrophils 66.5 BUN 18 creatinine 0.83 Chest x-ray from yesterday revealed by basilar atelectasis Blood culture on admission grew staph species, repeat blood cultures negative, urine culture negative Indwelling NG tube Wong catheter peripheral IV Antimicrobials patient remains on Vanco and cefepime Physical examination: General: Well-developed fragile elderly man who is in no distress. Head atraumatic normocephalic sclerae nonicteric. 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 Neck is supple chest rise symmetrical breath sounds diminished bases. Heart S1-S2. Abdomen soft bowel sounds present. Extremities without cyanosis. Assessment: 1. S/p sepsis with fevers leukocytosis acute encephalopathy 2. Staph bacteremia, likely a contaminant 3. Acute encephalopathy 4. Chronic kidney disease 5. Coronary artery disease status post CABG 6. Dysphasia Plan: Remains stable, all cultures negative, we will discontinue antibiotics and observe him, continue aspiration precautions, repeat cultures as needed [facility] staff Problems: Consultation Date/Type/Reason Admit Date/Time Apr 22, 2017 at 22:01 Initial Consult Date 04/23/17 Type of Consultation: id Referring Provider: LEONA GOLDBERG Exam/Review of Systems Vital Signs Vitals Vital Signs Date Time Temp Pulse Resp B/P Pulse Ox O2 Delivery O2 Flow Rate FiO2 04/26/17 15:00 98.5 85 20 126/75 100 04/26/17 14:04 Nasal Cannula 2.0 Intake and Output 04/25/17 04/25/17 04/26/17 15:00 23:00 07:00 Intake Total 985 ml 383 ml Output Total 750 ml 900 ml Balance 235 ml -517 ml Results Result Diagram: 04/26/17 0649 04/26/17 0649 Results 24 hrs Laboratory Tests Test 04/25/17 17:19 04/25/17 20:14 04/26/17 00:33 04/26/17 02:44 Bedside Glucose 277 H 240 H 267 H 249 H Test 04/26/17 05:15 04/26/17 06:49 04/26/17 08:13 04/26/17 12:19 Bedside Glucose 279 H 300 H 278 H White Blood Count 6.8 Red Blood Count 3.77 L Hemoglobin 11.3 L Hematocrit 35.4 L Mean Corpuscular Volume 93.9 Mean Corpuscular Hemoglobin 30.0 Mean Corpuscular Hemoglobin Concent 31.9 L Red Cell Distribution Width 13.2 Platelet Count 103 L Mean Platelet Volume 12.7 H Neutrophils % 66.5 Lymphocytes % 25.9 Monocytes % 5.0 Eosinophils % 1.9 Basophils % 0.3 Nucleated Red Blood Cells % 0.0 Neutrophils # 4.5 Lymphocytes # 1.8 Monocytes # 0.3 Eosinophils # 0.1 Basophils # 0.0 Nucleated Red Blood Cells # 0.0 Sodium Level 144 Potassium Level 3.7 Chloride Level 113 H Carbon Dioxide Level 27 Anion Gap 8 Blood Urea Nitrogen 18 Creatinine 0.83 Glucose Level 267 H Calcium Level 8.7 Magnesium Level 2.0 Total Bilirubin 0.7 Direct Bilirubin 0.00 Indirect Bilirubin 0.7 Aspartate Amino Transf (AST/SGOT) 21 Alanine Aminotransferase (ALT/SGPT) 27 Alkaline Phosphatase 68 Total Protein 5.9 L Albumin 2.7 L Globulin 3.20 Albumin/Globulin Ratio 0.84 Medications Medications Current Medications Ondansetron HCl (Zofran Inj) 4 mg Q6H PRN IV NAUSEA AND/OR VOMITING; Start at 22:00 Acetaminophen (Tylenol Supp) 650 mg Q4H PRN [place] PAIN LEVEL 1-3 OR FEVER; Start 04/22/17 at 22:00 Diagnostic Test (Pha) (Accu-Chek) 1 ea 02 XX Last administered on 04/26/17 02: 55; Admin Dose 1 EA; Start 04/23/17 at 02:00 Insulin Aspart (Novolog Insulin Pen) NOVOLOG *MODERATE* ALGORI... Q4 SC Last administered on 04/26/17 12:23; Admin Dose 8 UNIT; Start 04/23/17 at 01:00 Miscellaneous Information 1 ea NOTE XX ; Start 04/23/17 at 02:30 Glucose (Glutose) 15 gm Q15M PRN PO DECREASED GLUCOSE; Start 04/23/17 at 02:30 Glucose (Glutose) 22.5 gm Q15M PRN PO DECREASED GLUCOSE; Start 04/23/17 at 02: 30 Dextrose (D50w Syringe) 25 ml Q15M PRN IV DECREASED GLUCOSE; Start 04/23/17 at 02:30 Dextrose (D50w Syringe) 50 ml Q15M PRN IV DECREASED GLUCOSE; Start 04/23/17 at 02:30 Glucagon (Glucagen) 1 mg Q15M PRN IM DECREASED GLUCOSE; Start 04/23/17 at 02:30 Glucose (Glutose) 15 gm Q15M PRN BUCCAL DECREASED GLUCOSE; Start 04/23/17 at 02 :30 Famotidine 20 mg 20 mg DAILY IV Last administered on 04/26/17 08:46; Admin Dose 20 MG; Start 04/24/17 at 09:00 Cefepime HCl 50 ml @ 100 mls/hr Q12 IVPB Last administered on 04/26/17 08:46 ; Admin Dose 100 MLS/HR; Start 04/24/17 at 10:30 Vancomycin HCl/ Sodium Chloride (Vancocin/NS) 150 ml @ 75 mls/hr Q12H IVPB Last administered on 04/26/17 05:14; Admin Dose 75 MLS/HR; Start 04/25/17 at 18 :00 Miscellaneous Information (*Rx Drug Level Order Reminder*) VANCO TROUGH @ 1, 700 ON... ONCE ONCE XX ; Start 04/26/17 at 17:00; Stop 04/26/17 at 17:01 Insulin Glargine (Lantus) 32 unit DAILY@08 SC ; Start 04/27/17 at 08:00 MAGDI MILES NP Apr 26, 2017 15:10
--- NOTE | 2017-04-26 16:39 | CONS ---
Date/Time of Note Date/Time of Note DATE: 04/26/17 TIME: 16:37 Assessment/Plan Assessment/Plan Additional Assessment/Plan 1. BECKY on CKD III due to ATN from sepsis and due to prerenal azotemia 2. 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 Hypernatremia 4. Sepsis 2/2 Bacteremia, Staphylococcal bacteremia 5. Acute encephalopathy due to infectious and metabolic encephalopathy 6. H/o CAD S/p CABG 7. 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 Sacral decubitus ulcer on admission 10. agitation,requiring restraints Plan: Cr and electrlytes stable today, pt required restraints and still has NG tube, can not go to SNF Renal US showed normal echogenicity , small size kidney compared to normal apprently pt has h/o CKD due to Diabetic nephropathy Continue current IV abx will follow up Consultation Date/Type/Reason Admit Date/Time Apr 22, 2017 at 22:01 Initial Consult Date 04/23/17 Type of Consultation: NEPHROLOGY Referring Provider: LEONA GOLDBERG 24 HR Interval Summary Free Text/Dictation pt required restraints , NG tube in p lace, Cr electrolytes stable, BS has been running high Exam/Review of Systems Vital Signs Vitals Vital Signs Date Time Temp Pulse Resp B/P Pulse Ox O2 Delivery O2 Flow Rate FiO2 04/26/17 16:34 86 04/26/17 15:00 98.5 20 126/75 100 04/26/17 14:04 Nasal Cannula 2.0 Intake and Output 04/25/17 04/25/17 04/26/17 15:00 23:00 07:00 Intake Total 985 ml 383 ml Output Total 750 ml 900 ml Balance 235 ml -517 ml Exam Constitutional: other (agitated, ) ENMT: nl lips & teeth Neck: non-tender, supple Respiratory: clear to auscultation, normal air movement Cardiovascular: nl pulses, regular rate and rhythm Gastrointestinal: non-tender, soft Extremities: normal pulses Results Result Diagram: 04/26/17 0649 04/26/17 0649 Results 24 hrs Laboratory Tests Test 04/25/17 17:19 04/25/17 20:14 04/26/17 00:33 04/26/17 02:44 Bedside Glucose 277 H 240 H 267 H 249 H Test 04/26/17 05:15 04/26/17 06:49 04/26/17 08:13 04/26/17 12:19 Bedside Glucose 279 H 300 H 278 H White Blood Count 6.8 Red Blood Count 3.77 L Hemoglobin 11.3 L Hematocrit 35.4 L Mean Corpuscular Volume 93.9 Mean Corpuscular Hemoglobin 30.0 Mean Corpuscular Hemoglobin Concent 31.9 L Red Cell Distribution Width 13.2 Platelet Count 103 L Mean Platelet Volume 12.7 H Neutrophils % 66.5 Lymphocytes % 25.9 Monocytes % 5.0 Eosinophils % 1.9 Basophils % 0.3 Nucleated Red Blood Cells % 0.0 Neutrophils # 4.5 Lymphocytes # 1.8 Monocytes # 0.3 Eosinophils # 0.1 Basophils # 0.0 Nucleated Red Blood Cells # 0.0 Sodium Level 144 Potassium Level 3.7 Chloride Level 113 H Carbon Dioxide Level 27 Anion Gap 8 Blood Urea Nitrogen 18 Creatinine 0.83 Glucose Level 267 H Calcium Level 8.7 Magnesium Level 2.0 Total Bilirubin 0.7 Direct Bilirubin 0.00 Indirect Bilirubin 0.7 Aspartate Amino Transf (AST/SGOT) 21 Alanine Aminotransferase (ALT/SGPT) 27 Alkaline Phosphatase 68 Total Protein 5.9 L Albumin 2.7 L Globulin 3.20 Albumin/Globulin Ratio 0.84 Medications Medications Current Medications Ondansetron HCl (Zofran Inj) 4 mg Q6H PRN IV NAUSEA AND/OR VOMITING; Start at 22:00 Acetaminophen (Tylenol Supp) 650 mg Q4H PRN [place] PAIN LEVEL 1-3 OR FEVER; Start 04/22/17 at 22:00 Diagnostic Test (Pha) (Accu-Chek) 1 ea 02 XX Last administered on 04/26/17 02: 55; Admin Dose 1 EA; Start 04/23/17 at 02:00 Insulin Aspart (Novolog Insulin Pen) NOVOLOG *MODERATE* ALGORI... Q4 SC Last administered on 04/26/17 12:23; Admin Dose 8 UNIT; Start 04/23/17 at 01:00 Miscellaneous Information 1 ea NOTE XX ; Start 04/23/17 at 02:30 Glucose (Glutose) 15 gm Q15M PRN PO DECREASED GLUCOSE; Start 04/23/17 at 02:30 Glucose (Glutose) 22.5 gm Q15M PRN PO DECREASED GLUCOSE; Start 04/23/17 at 02: 30 Dextrose (D50w Syringe) 25 ml Q15M PRN IV DECREASED GLUCOSE; Start 04/23/17 at 02:30 Dextrose (D50w Syringe) 50 ml Q15M PRN IV DECREASED GLUCOSE; Start 04/23/17 at 02:30 Glucagon (Glucagen) 1 mg Q15M PRN IM DECREASED GLUCOSE; Start 04/23/17 at 02:30 Glucose (Glutose) 15 gm Q15M PRN BUCCAL DECREASED GLUCOSE; Start 04/23/17 at 02 :30 Famotidine (Pepcid Iv) 20 mg DAILY IV Last administered on 04/26/17t 08:46; Admin Dose 20 MG; Start 04/24/17 at 09:00 Insulin Glargine (Lantus) 32 unit DAILY@08 SC ; Start 04/27/17 at 08:00 RACHELLE DASH MD Apr 26, 2017 16:39
--- NOTE | 2017-04-26 17:42 | PN ---
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 Found to have profound hypernatremia and bacteremia Hypernatremia: - Profound hyponatremia from poor PO intake - Continue NG feeds and IVF - Will have to discuss with family the patient's goals of care as this will inevitably recur BECKY: - Resolved with fluids DMII: - Increase basal, bolus insulin. Remains markedly hyperglycemic Vacsular dementia: - Continue aspirin and statin Coag negative staph bactermia: -- Contaminant as further cultures negative, no vegetations or other signs of infection - Dc abx Discharge to [facility] Problems: Subjective 24 Hr Interval Summary Free Text/Dictation No change to clniical status Ready for discharge pending arrangements Nonverbal, appears comfortabl, no complialnts BC growing CoNS likely contaminiant Exam/Review of Systems Vital Signs Vitals Vital Signs Date Time Temp Pulse Resp B/P Pulse Ox O2 Delivery O2 Flow Rate FiO2 04/26/17 16:38 98.8 78 18 109/54 95 Nasal Cannula 2.0 Intake and Output 04/25/17 04/25/17 04/26/17 15:00 23:00 07:00 Intake Total 985 ml 383 ml Output Total 750 ml 900 ml Balance 235 ml -517 ml Exam Constitutional: alert, oriented, well developed Psych: nl mood/affect, no complaints Head: atraumatic, normocephalic Eyes: EOMI, PERRL, nl conjunctiva, nl lids, nl sclera ENMT: nl external ears & nose, nl lips & teeth, nl nasal mucosa & septum Neck: non-tender, supple Respiratory: clear to auscultation, normal air movement Cardiovascular: nl pulses, regular rate and rhythm Gastrointestinal: nl liver, spleen, non-tender, soft Musculoskeletal: nl extremities to inspection, nl gait and stance Extremities: normal pulses Neurological: 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, nl mental status, nl speech, nl strength Skin: nl turgor, No rash or lesions Lymph: nl lymph nodes Results Result Diagram: 04/26/17 0649 04/26/17 0649 Results 24 hrs Laboratory Tests Test 04/25/17 20:14 04/26/17 00:33 04/26/17 02:44 04/26/17 05:15 Bedside Glucose 240 H 267 H 249 H 279 H Test 04/26/17 06:49 04/26/17 08:13 04/26/17 12:19 04/26/17 17:07 White Blood Count 6.8 Red Blood Count 3.77 L Hemoglobin 11.3 L Hematocrit 35.4 L Mean Corpuscular Volume 93.9 Mean Corpuscular Hemoglobin 30.0 Mean Corpuscular Hemoglobin Concent 31.9 L Red Cell Distribution Width 13.2 Platelet Count 103 L Mean Platelet Volume 12.7 H Neutrophils % 66.5 Lymphocytes % 25.9 Monocytes % 5.0 Eosinophils % 1.9 Basophils % 0.3 Nucleated Red Blood Cells % 0.0 Neutrophils # 4.5 Lymphocytes # 1.8 Monocytes # 0.3 Eosinophils # 0.1 Basophils # 0.0 Nucleated Red Blood Cells # 0.0 Sodium Level 144 Potassium Level 3.7 Chloride Level 113 H Carbon Dioxide Level 27 Anion Gap 8 Blood Urea Nitrogen 18 Creatinine 0.83 Glucose Level 267 H Calcium Level 8.7 Magnesium Level 2.0 Total Bilirubin 0.7 Direct Bilirubin 0.00 Indirect Bilirubin 0.7 Aspartate Amino Transf (AST/SGOT) 21 Alanine Aminotransferase (ALT/SGPT) 27 Alkaline Phosphatase 68 Total Protein 5.9 L Albumin 2.7 L Globulin 3.20 Albumin/Globulin Ratio 0.84 Bedside Glucose 300 H 278 H 211 Medications Medications Current Medications Ondansetron HCl (Zofran Inj) 4 mg Q6H PRN IV NAUSEA AND/OR VOMITING; Start at 22:00 Acetaminophen (Tylenol Supp) 650 mg Q4H PRN [place] PAIN LEVEL 1-3 OR FEVER; Start 04/22/17 at 22:00 Diagnostic Test (Pha) (Accu-Chek) 1 ea 02 XX Last administered on 04/26/17 02: 55; Admin Dose 1 EA; Start 04/23/17 at 02:00 Insulin Aspart (Novolog Insulin Pen) NOVOLOG *MODERATE* ALGORI... Q4 SC Last administered on 04/26/17 17:11; Admin Dose 4 UNIT; Start 04/23/17 at 01:00 Miscellaneous Information 1 ea NOTE XX ; Start 04/23/17 at 02:30 Glucose (Glutose) 15 gm Q15M PRN PO DECREASED GLUCOSE; Start 04/23/17 at 02:30 Glucose (Glutose) 22.5 gm Q15M PRN PO DECREASED GLUCOSE; Start 04/23/17 at 02: 30 Dextrose (D50w Syringe) 25 ml Q15M PRN IV DECREASED GLUCOSE; Start 04/23/17 at 02:30 Dextrose (D50w Syringe) 50 ml Q15M PRN IV DECREASED GLUCOSE; Start 04/23/17 at 02:30 Glucagon (Glucagen) 1 mg Q15M PRN IM DECREASED GLUCOSE; Start 04/23/17 at 02:30 Glucose (Glutose) 15 gm Q15M PRN BUCCAL DECREASED GLUCOSE; Start 04/23/17 at 02 :30 Famotidine (Pepcid Iv) 20 mg DAILY IV Last administered on 04/26/17t 08:46; Admin Dose 20 MG; Start 04/24/17 at 09:00 Insulin Glargine (Lantus) 32 unit DAILY@08 SC ; Start 04/27/17 at 08:00 NISHA PRIDE MD Apr 26, 2017 17:42
[2017-04-26] MEDS: COLLAGENASE 30 GM TUBE TOP SCH (21:46)
[2017-04-27] VITALS (16 sets, daily range): BP systolic 107–129; BP diastolic 64–81; PULSE 75–91; RESP 17–21
[2017-04-27] MEDS: INSULIN ASPART [NOVOLOG] 3 ML PEN SC SCH ×5 (01:27→17:48)
[2017-04-27] MEDS: ACCU-CHEK XX SCH ×2 (01:32→21:46)
[2017-04-27 06:32] LABS: ABNORMAL IP MESSAGE 1; BASOPHILS % 0.3 % (0.0-2.0); EOSINOPHILS # 0.2 10^3/ul (0.0-0.5); EOSINOPHILS % 2.8 % (0.0-7.0); LYMPHOCYTES # 1.7 10^3/ul (0.8-2.9); LYMPHOCYTES % 22.1 % (15.0-51.0); MEAN CORPUSCULAR HEMOGLOBIN 29.3 pg (29.0-33.0); MEAN CORPUSCULAR HGB CONC 31.4 g/dl (32.0-37.0); MEAN CORPUSCULAR VOLUME 93.3 fl (82.0-101.0); MEAN PLATELET VOLUME 12.1 fl (7.4-10.4); MONOCYTE # 0.4 10^3/ul (0.3-0.9); MONOCYTES % 5.6 % (0.0-11.0); NEUTROPHIL # 5.2 10^3/ul (1.6-7.5); NEUTROPHILS % 68.4 % (39.0-77.0); PLATELET COUNT 95 10^3/UL (140-415); POSITIVE DIFF @See below; RED BLOOD COUNT 3.75 10^6/ul (4.70-6.10); RED CELL DISTRIBUTION WIDTH 13.3 % (11.5-14.5); WHITE BLOOD COUNT 7.6 10^3/ul (4.8-10.8)
[2017-04-27 07:37] LABS: ALBUMIN 2.7 g/dl (3.3-4.9); ALBUMIN/GLOBULIN RATIO 0.84; BILIRUBIN,INDIRECT 0.6 mg/dl (0-1.1); BILIRUBIN,TOTAL 0.6 mg/dl (0.2-1.3); CALCIUM 8.7 mg/dl (8.4-10.2); CREATININE 0.79 mg/dl (0.61-1.24); MAGNESIUM 1.9 mg/dl (1.7-2.5); POTASSIUM 3.7 mmol/L (3.5-5.1); TOTAL PROTEIN 5.9 g/dl (6.1-8.1)
[2017-04-27] MEDS: INSULIN GLARGINE [LANtus] 3 ML PEN SC SCH (08:29)
[2017-04-27] MEDS: FAMOTIDINE 20 MG INJ IV SCH (09:20)
[2017-04-27] MEDS: COLLAGENASE 30 GM TUBE TOP SCH ×2 (09:20→21:45)
--- NOTE | 2017-04-27 15:37 | PN ---
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 Found to have profound hypernatremia Hypernatremia: - Profound hypernatremia from poor PO intake now resolved BECKY: - Resolved with fluids DMII: - Continue basal bolus insulin Vacsular dementia: - Continue aspirin and statin Coag negative staph bactermia: -- Contaminant as further cultures negative, no vegetations or other signs of infection - Dc abx Discharge to [facility] tomorrow Problems: Subjective 24 Hr Interval Summary Free Text/Dictation Passed swallow eval today Clinical status unchanged otherwise Sodium normalized Pendign transfer back to CT tomorrow Exam/Review of Systems Vital Signs Vitals Vital Signs Date Time Temp Pulse Resp B/P Pulse Ox O2 Delivery O2 Flow Rate FiO2 04/27/17 14:00 97.9 89 19 113/72 96 Nasal Cannula 2.0 Intake and Output 04/26/17 04/26/17 04/27/17 15:00 23:00 07:00 Intake Total 1020 ml 985 ml Output Total 800 ml 450 ml Balance 220 ml 535 ml Exam Constitutional: alert, non-verbal, oriented, well developed Psych: nl mood/affect, no complaints Head: atraumatic, normocephalic Eyes: EOMI, PERRL, nl conjunctiva, nl lids, nl sclera ENMT: nl external ears & nose, nl lips & teeth, nl nasal mucosa & septum Neck: non-tender, supple Respiratory: clear to auscultation, normal air movement Cardiovascular: nl pulses, regular rate and rhythm Gastrointestinal: nl liver, spleen, non-tender, soft Musculoskeletal: nl extremities to inspection, nl gait and stance Extremities: normal pulses Neurological: PORTABLE 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 II-XII intact, nl mental status, nl speech, nl strength Skin: nl turgor, No rash or lesions Lymph: nl lymph nodes Results Result Diagram: 04/27/17 0601 04/27/17 0601 Results 24 hrs Laboratory Tests Test 04/26/17 17:07 04/26/17 21:32 04/27/17 01:22 04/27/17 04:35 Bedside Glucose 211 275 H 236 H 248 H Test 04/27/17 06:01 04/27/17 08:25 04/27/17 12:04 White Blood Count 7.6 Red Blood Count 3.75 L Hemoglobin 11.0 L Hematocrit 35.0 L Mean Corpuscular Volume 93.3 Mean Corpuscular Hemoglobin 29.3 Mean Corpuscular Hemoglobin Concent 31.4 L Red Cell Distribution Width 13.3 Platelet Count 95 L Mean Platelet Volume 12.1 H Neutrophils % 68.4 Lymphocytes % 22.1 Monocytes % 5.6 Eosinophils % 2.8 Basophils % 0.3 Nucleated Red Blood Cells % 0.0 Neutrophils # 5.2 Lymphocytes # 1.7 Monocytes # 0.4 Eosinophils # 0.2 Basophils # 0.0 Nucleated Red Blood Cells # 0.0 Sodium Level 142 Potassium Level 3.7 Chloride Level 110 Carbon Dioxide Level 29 Anion Gap 7 L Blood Urea Nitrogen 17 Creatinine 0.79 Glucose Level 246 H Calcium Level 8.7 Magnesium Level 1.9 Total Bilirubin 0.6 Direct Bilirubin 0.00 Indirect Bilirubin 0.6 Aspartate Amino Transf (AST/SGOT) 34 # Alanine Aminotransferase (ALT/SGPT) 34 Alkaline Phosphatase 67 Total Protein 5.9 L Albumin 2.7 L Globulin 3.20 Albumin/Globulin Ratio 0.84 Bedside Glucose 214 238 H Medications Medications Current Medications Ondansetron HCl (Zofran Inj) 4 mg Q6H PRN IV NAUSEA AND/OR VOMITING; Start at 22:00 Acetaminophen (Tylenol Supp) 650 mg Q4H PRN [place] PAIN LEVEL 1-3 OR FEVER; Start 04/22/17 at 22:00 Diagnostic Test (Pha) (Accu-Chek) 1 ea 02 XX Last administered on 04/26/17 02: 55; Admin Dose 1 EA; Start 04/23/17 at 02:00 Insulin Aspart (Novolog Insulin Pen) NOVOLOG *MODERATE* ALGORI... Q4 SC Last administered on 04/27/17 12:16; Admin Dose 6 UNIT; Start 04/23/17 at 01:00 Miscellaneous Information 1 ea NOTE XX ; Start 04/23/17 at 02:30 Glucose (Glutose) 15 gm Q15M PRN PO DECREASED GLUCOSE; Start 04/23/17 at 02:30 Glucose (Glutose) 22.5 gm Q15M PRN PO DECREASED GLUCOSE; Start 04/23/17 at 02: 30 Dextrose (D50w Syringe) 25 ml Q15M PRN IV DECREASED GLUCOSE; Start 04/23/17 at 02:30 Dextrose (D50w Syringe) 50 ml Q15M PRN IV DECREASED GLUCOSE; Start 04/23/17 at 02:30 Glucagon (Glucagen) 1 mg Q15M PRN IM DECREASED GLUCOSE; Start 04/23/17 at 02:30 Glucose (Glutose) 15 gm Q15M PRN BUCCAL DECREASED GLUCOSE; Start 04/23/17 at 02 :30 Insulin Glargine (Lantus) 32 unit DAILY@08 SC Last administered on 04/27/17 08 :29; Admin Dose 32 UNIT; Start 04/27/17 at 08:00 Collagenase (Santyl) 1 applic BID TOP Last administered on 04/27/17 09:20; Admin Dose 1 APPLIC; Start 04/26/17 at 21:00 NISHA PRIDE MD Apr 27, 2017 15:37
--- NOTE | 2017-04-27 19:48 | CONS ---
Date/Time of Note Date/Time of Note DATE: 04/27/17 TIME: 19:47 Assessment/Plan Assessment/Plan Additional Assessment/Plan 1. BECKY on CKD III due to ATN from sepsis and due to prerenal azotemia 2. 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 Hypernatremia 4. Sepsis 2/2 Bacteremia, Staphylococcal bacteremia 5. Acute encephalopathy due to infectious and metabolic encephalopathy 6. H/o CAD S/p CABG 7. 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 Sacral decubitus ulcer on admission 10. agitation,requiring restraints Plan: Cr and electrlytes stable today, agitated, need to be more calm before going to SNF Renal US showed normal echogenicity , small size kidney compared to normal apprently pt has h/o CKD due to Diabetic nephropathy Continue current IV abx will follow up Consultation Date/Type/Reason Admit Date/Time Apr 22, 2017 at 22:01 Initial Consult Date 04/23/17 Type of Consultation: NEPHROLOGY Referring Provider: LEONA GOLDBERG 24 HR Interval Summary Free Text/Dictation no acute events Exam/Review of Systems Vital Signs Vitals Vital Signs Date Time Temp Pulse Resp B/P Pulse Ox O2 Delivery O2 Flow Rate FiO2 04/27/17 17:52 2.0 04/27/17 16:22 91 04/27/17 16:00 97.5 17 118/70 93 04/27/17 14:00 Nasal Cannula Intake and Output 04/26/17 04/26/17 04/27/17 15:00 23:00 07:00 Intake Total 1020 ml 985 ml Output Total 800 ml 450 ml Balance 220 ml 535 ml Results Result Diagram: 04/27/17 0601 04/27/17 0601 Results 24 hrs Laboratory Tests Test 04/26/17 21:32 04/27/17 01:22 04/27/17 04:35 04/27/17 06:01 Bedside Glucose 275 H 236 H 248 H White Blood Count 7.6 Red Blood Count 3.75 L Hemoglobin 11.0 L Hematocrit 35.0 L Mean Corpuscular Volume 93.3 Mean Corpuscular Hemoglobin 29.3 Mean Corpuscular Hemoglobin Concent 31.4 L Red Cell Distribution Width 13.3 Platelet Count 95 L Mean Platelet Volume 12.1 H Neutrophils % 68.4 Lymphocytes % 22.1 Monocytes % 5.6 Eosinophils % 2.8 Basophils % 0.3 Nucleated Red Blood Cells % 0.0 Neutrophils # 5.2 Lymphocytes # 1.7 Monocytes # 0.4 Eosinophils # 0.2 Basophils # 0.0 Nucleated Red Blood Cells # 0.0 Sodium Level 142 Potassium Level 3.7 Chloride Level 110 Carbon Dioxide Level 29 Anion Gap 7 L Blood Urea Nitrogen 17 Creatinine 0.79 Glucose Level 246 H Calcium Level 8.7 Magnesium Level 1.9 Total Bilirubin 0.6 Direct Bilirubin 0.00 Indirect Bilirubin 0.6 Aspartate Amino Transf (AST/SGOT) 34 # Alanine Aminotransferase (ALT/SGPT) 34 Alkaline Phosphatase 67 Total Protein 5.9 L Albumin 2.7 L Globulin 3.20 Albumin/Globulin Ratio 0.84 Test 04/27/17 08:25 04/27/17 12:04 04/27/17 17:35 Bedside Glucose 214 238 H 203 Medications Medications Current Medications Ondansetron HCl (Zofran Inj) 4 mg Q6H PRN IV NAUSEA AND/OR VOMITING; Start at 22:00 Acetaminophen (Tylenol Supp) 650 mg Q4H PRN [place] PAIN LEVEL 1-3 OR FEVER; Start 04/22/17 at 22:00 Diagnostic Test (Pha) (Accu-Chek) 1 ea 02 XX Last administered on 04/26/17 02: 55; Admin Dose 1 EA; Start 04/23/17 at 02:00 Insulin Aspart (Novolog Insulin Pen) NOVOLOG *MODERATE* ALGORI... Q4 SC Last administered on 04/27/17 17:48; Admin Dose 4 UNIT; Start 04/23/17 at 01:00 Miscellaneous Information 1 ea NOTE XX ; Start 04/23/17 at 02:30 Glucose (Glutose) 15 gm Q15M PRN PO DECREASED GLUCOSE; Start 04/23/17 at 02:30 Glucose (Glutose) 22.5 gm Q15M PRN PO DECREASED GLUCOSE; Start 04/23/17 at 02: 30 Dextrose (D50w Syringe) 25 ml Q15M PRN IV DECREASED GLUCOSE; Start 04/23/17 at 02:30 Dextrose (D50w Syringe) 50 ml Q15M PRN IV DECREASED GLUCOSE; Start 04/23/17 at 02:30 Glucagon (Glucagen) 1 mg Q15M PRN IM DECREASED GLUCOSE; Start 04/23/17 at 02:30 Glucose (Glutose) 15 gm Q15M PRN BUCCAL DECREASED GLUCOSE; Start 04/23/17 at 02 :30 Insulin Glargine (Lantus) 32 unit DAILY@08 SC Last administered on 04/27/17 08 :29; Admin Dose 32 UNIT; Start 04/27/17 at 08:00 Collagenase (Santyl) 1 applic BID TOP Last administered on 04/27/17 09:20; Admin Dose 1 APPLIC; Start 04/26/17 at 21:00 RACHELLE DASH MD Apr 27, 2017 19:48
--- NOTE | 2017-04-27 19:51 | CONS ---
Date/Time of Note Date/Time of Note DATE: 04/27/17 TIME: 19:50 Assessment/Plan Assessment/Plan Chief Complaint/Hosp Course No acute events overnight patient is more awake, looks comfortable, no fevers Blood culture on admission grew staph species, repeat blood cultures negative, urine culture negative Indwelling NG tube Wong catheter peripheral IV Antimicrobials: none Physical examination: Well-developed fragile elderly man who is in no distress. Head atraumatic normocephalic sclerae nonicteric. 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 Neck is supple chest rise symmetrical breath sounds diminished bases. Heart S1-S2. Abdomen soft bowel sounds present. Extremities without cyanosis. Assessment: 1. S/p sepsis with fevers leukocytosis acute encephalopathy 2. Staph bacteremia, likely a contaminant 3. Acute encephalopathy 4. Chronic kidney disease 5. Coronary artery disease status post CABG 6. Dysphasia Plan: Remains stable, off abx, continue present care, aspiration precautions, repeat cultures as needed [facility] staff Problems: Consultation Date/Type/Reason Admit Date/Time Apr 22, 2017 at 22:01 Initial Consult Date 04/23/17 Type of Consultation: ID Referring Provider: LEONA GOLDBERG Exam/Review of Systems Vital Signs Vitals Vital Signs Date Time Temp Pulse Resp B/P Pulse Ox O2 Delivery O2 Flow Rate FiO2 04/27/17 17:52 2.0 04/27/17 16:22 91 04/27/17 16:00 97.5 17 118/70 93 04/27/17 14:00 Nasal Cannula Intake and Output 04/26/17 04/26/17 04/27/17 15:00 23:00 07:00 Intake Total 1020 ml 985 ml Output Total 800 ml 450 ml Balance 220 ml 535 ml Results Result Diagram: 04/27/17 0601 04/27/17 0601 Results 24 hrs Laboratory Tests Test 04/26/17 21:32 04/27/17 01:22 04/27/17 04:35 04/27/17 06:01 Bedside Glucose 275 H 236 H 248 H White Blood Count 7.6 Red Blood Count 3.75 L Hemoglobin 11.0 L Hematocrit 35.0 L Mean Corpuscular Volume 93.3 Mean Corpuscular Hemoglobin 29.3 Mean Corpuscular Hemoglobin Concent 31.4 L Red Cell Distribution Width 13.3 Platelet Count 95 L Mean Platelet Volume 12.1 H Neutrophils % 68.4 Lymphocytes % 22.1 Monocytes % 5.6 Eosinophils % 2.8 Basophils % 0.3 Nucleated Red Blood Cells % 0.0 Neutrophils # 5.2 Lymphocytes # 1.7 Monocytes # 0.4 Eosinophils # 0.2 Basophils # 0.0 Nucleated Red Blood Cells # 0.0 Sodium Level 142 Potassium Level 3.7 Chloride Level 110 Carbon Dioxide Level 29 Anion Gap 7 L Blood Urea Nitrogen 17 Creatinine 0.79 Glucose Level 246 H Calcium Level 8.7 Magnesium Level 1.9 Total Bilirubin 0.6 Direct Bilirubin 0.00 Indirect Bilirubin 0.6 Aspartate Amino Transf (AST/SGOT) 34 # Alanine Aminotransferase (ALT/SGPT) 34 Alkaline Phosphatase 67 Total Protein 5.9 L Albumin 2.7 L Globulin 3.20 Albumin/Globulin Ratio 0.84 Test 04/27/17 08:25 04/27/17 12:04 04/27/17 17:35 Bedside Glucose 214 238 H 203 Medications Medications Current Medications Ondansetron HCl (Zofran Inj) 4 mg Q6H PRN IV NAUSEA AND/OR VOMITING; Start at 22:00 Acetaminophen (Tylenol Supp) 650 mg Q4H PRN [place] PAIN LEVEL 1-3 OR FEVER; Start 04/22/17 at 22:00 Diagnostic Test (Pha) (Accu-Chek) 1 ea 02 XX Last administered on 04/26/17 02: 55; Admin Dose 1 EA; Start 04/23/17 at 02:00 Insulin Aspart (Novolog Insulin Pen) NOVOLOG *MODERATE* ALGORI... Q4 SC Last administered on 04/27/17 17:48; Admin Dose 4 UNIT; Start 04/23/17 at 01:00 Miscellaneous Information 1 ea NOTE XX ; Start 04/23/17 at 02:30 Glucose (Glutose) 15 gm Q15M PRN PO DECREASED GLUCOSE; Start 04/23/17 at 02:30 Glucose (Glutose) 22.5 gm Q15M PRN PO DECREASED GLUCOSE; Start 04/23/17 at 02: 30 Dextrose (D50w Syringe) 25 ml Q15M PRN IV DECREASED GLUCOSE; Start 04/23/17 at 02:30 Dextrose (D50w Syringe) 50 ml Q15M PRN IV DECREASED GLUCOSE; Start 04/23/17 at 02:30 Glucagon (Glucagen) 1 mg Q15M PRN IM DECREASED GLUCOSE; Start 04/23/17 at 02:30 Glucose (Glutose) 15 gm Q15M PRN BUCCAL DECREASED GLUCOSE; Start 04/23/17 at 02 :30 Insulin Glargine (Lantus) 32 unit DAILY@08 SC Last administered on 04/27/17 08 :29; Admin Dose 32 UNIT; Start 04/27/17 at 08:00 Collagenase (Santyl) 1 applic BID TOP Last administered on 04/27/17 09:20; Admin Dose 1 APPLIC; Start 04/26/17 at 21:00 MAGDI MILES NP Apr 27, 2017 19:51
[2017-04-27] MEDS: Insulin NOVOLOG SS MODERATE Algorithm (SS with meals and bedtime) SC SCH (21:35)
[2017-04-28] VITALS (9 sets, daily range): BP systolic 120–141; BP diastolic 78–81; PULSE 80–86; RESP 16–20
[2017-04-28] MEDS: ACCU-CHEK XX SCH ×3 (02:00→12:01)
[2017-04-28] MEDS: INSULIN GLARGINE [LANtus] 3 ML PEN SC SCH (08:12)
[2017-04-28] MEDS: Insulin NOVOLOG SS MODERATE Algorithm (SS with meals and bedtime) SC SCH ×2 (08:13→12:00)
[2017-04-28] MEDS: COLLAGENASE 30 GM TUBE TOP SCH (08:24)
--- NOTE | 2017-04-28 13:22 | CONS ---
Date/Time of Note Date/Time of Note DATE: 04/28/17 TIME: 13:21 Assessment/Plan Assessment/Plan Additional Assessment/Plan 1. BECKY on CKD III due to ATN from sepsis and due to prerenal azotemia 2. 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 Hypernatremia 4. Sepsis 2/2 Bacteremia, Staphylococcal bacteremia 5. Acute encephalopathy due to infectious and metabolic encephalopathy 6. H/o CAD S/p CABG 7. 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 Sacral decubitus ulcer on admission 10. agitation,requiring restraints Plan: no chemistyr today to review yet Renal US showed normal echogenicity , small size kidney compared to normal apparently pt has h/o CKD due to Diabetic nephropathy Continue current IV abx will follow up Consultation Date/Type/Reason Admit Date/Time Apr 22, 2017 at 22:01 Initial Consult Date 04/23/17 Type of Consultation: NEPHROLOGY Referring Provider: LEONA GOLDBERG Exam/Review of Systems Vital Signs Vitals Vital Signs Date Time Temp Pulse Resp B/P Pulse Ox O2 Delivery O2 Flow Rate FiO2 04/28/17 12:19 86 04/28/17 12:18 96.9 20 141/80 95 04/28/17 08:15 2.0 04/28/17 08:00 Nasal Cannula Intake and Output 04/27/17 04/27/17 04/28/17 15:00 23:00 07:00 Intake Total 875 ml 300 ml Output Total 540 ml Balance 335 ml 300 ml Exam Constitutional: awake ENMT: nl lips & teeth Neck: non-tender, supple Respiratory: clear to auscultation, normal air movement Cardiovascular: nl pulses, regular rate and rhythm Gastrointestinal: non-tender, soft Extremities: normal pulses Results Result Diagram: 04/27/17 0601 04/27/17 0601 Results 24 hrs Laboratory Tests Test 04/27/17 17:35 04/27/17 21:28 04/28/17 02:29 04/28/17 08:07 Bedside Glucose 203 241 H 221 H 197 Test 04/28/17 11:56 Bedside Glucose 224 H Medications Medications Current Medications Ondansetron HCl (Zofran Inj) 4 mg Q6H PRN IV NAUSEA AND/OR VOMITING; Start at 22:00 Acetaminophen (Tylenol Supp) 650 mg Q4H PRN [place] PAIN LEVEL 1-3 OR FEVER; Start 04/22/17 at 22:00 Diagnostic Test (Pha) (Accu-Chek) 1 ea 02 XX Last administered on 04/26/17 02: 55; Admin Dose 1 EA; Start 04/23/17 at 02:00 Miscellaneous Information 1 ea NOTE XX ; Start 04/23/17 at 02:30 Glucose (Glutose) 15 gm Q15M PRN PO DECREASED GLUCOSE; Start 04/23/17 at 02:30 Glucose (Glutose) 22.5 gm Q15M PRN PO DECREASED GLUCOSE; Start 04/23/17 at 02: 30 Dextrose (D50w Syringe) 25 ml Q15M PRN IV DECREASED GLUCOSE; Start 04/23/17 at 02:30 Dextrose (D50w Syringe) 50 ml Q15M PRN IV DECREASED GLUCOSE; Start 04/23/17 at 02:30 Glucagon (Glucagen) 1 mg Q15M PRN IM DECREASED GLUCOSE; Start 04/23/17 at 02:30 Glucose (Glutose) 15 gm Q15M PRN BUCCAL DECREASED GLUCOSE; Start 04/23/17 at 02 :30 Insulin Glargine (Lantus) 32 unit DAILY@08 SC Last administered on 04/28/17 08 :12; Admin Dose 32 UNIT; Start 04/27/17 at 08:00 Collagenase (Santyl) 1 applic BID TOP Last administered on 04/28/17 08:24; Admin Dose 1 APPLIC; Start 04/26/17 at 21:00 RACHELLE DASH MD Apr 28, 2017 13:22
--- NOTE | 2017-04-28 14:31 | CONS ---
Date/Time of Note Date/Time of Note DATE: 04/28/17 TIME: 14:28 Assessment/Plan Assessment/Plan Chief Complaint/Hosp Course Assessment/Plan Chief Complaint/Hosp Course Awake. Responsive. No Acute Distress. Blood culture on admission grew staph species, repeat blood cultures negative, urine culture negative Indwelling NG tube Wong catheter peripheral IV Antimicrobials: none Physical examination: Well-developed fragile elderly man who is in no distress. Head atraumatic normocephalic sclerae nonicteric. 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 Neck is supple chest rise symmetrical breath sounds diminished bases. Heart S1-S2. Abdomen soft bowel sounds present. Extremities without cyanosis. Assessment: 1. S/p sepsis with fevers leukocytosis acute encephalopathy 2. Staph bacteremia, likely a contaminant 3. Acute encephalopathy 4. Chronic kidney disease 5. Coronary artery disease status post CABG 6. Dysphasia Plan: Remains stable, off abx, continue present care, aspiration precautions, repeat cultures as needed. Monitor mental status. Monitor neurological status. Monitor Labs. Problems: Consultation Date/Type/Reason Admit Date/Time Apr 22, 2017 at 22:01 Initial Consult Date 04/23/17 Type of Consultation: id Referring Provider: LEONA GOLDBERG Exam/Review of Systems Vital Signs Vitals Vital Signs Date Time Temp Pulse Resp B/P Pulse Ox O2 Delivery O2 Flow Rate FiO2 04/28/17 12:19 86 04/28/17 12:18 96.9 20 141/80 95 04/28/17 08:15 2.0 04/28/17 08:00 Nasal Cannula Intake and Output 04/27/17 04/27/17 04/28/17 15:00 23:00 07:00 Intake Total 875 ml 300 ml Output Total 540 ml Balance 335 ml 300 ml Results Result Diagram: 04/27/17 0601 04/27/17 0601 Results 24 hrs Laboratory Tests Test 04/27/17 17:35 04/27/17 21:28 04/28/17 02:29 04/28/17 08:07 Bedside Glucose 203 241 H 221 H 197 Test 04/28/17 11:56 Bedside Glucose 224 H Medications Medications Current Medications Ondansetron HCl (Zofran Inj) 4 mg Q6H PRN IV NAUSEA AND/OR VOMITING; Start at 22:00 Acetaminophen (Tylenol Supp) 650 mg Q4H PRN [place] PAIN LEVEL 1-3 OR FEVER; Start 04/22/17 at 22:00 Diagnostic Test (Pha) (Accu-Chek) 1 ea 02 XX Last administered on 04/26/17 02: 55; Admin Dose 1 EA; Start 04/23/17 at 02:00 Miscellaneous Information 1 ea NOTE XX ; Start 04/23/17 at 02:30 Glucose (Glutose) 15 gm Q15M PRN PO DECREASED GLUCOSE; Start 04/23/17 at 02:30 Glucose (Glutose) 22.5 gm Q15M PRN PO DECREASED GLUCOSE; Start 04/23/17 at 02: 30 Dextrose (D50w Syringe) 25 ml Q15M PRN IV DECREASED GLUCOSE; Start 04/23/17 at 02:30 Dextrose (D50w Syringe) 50 ml Q15M PRN IV DECREASED GLUCOSE; Start 04/23/17 at 02:30 Glucagon (Glucagen) 1 mg Q15M PRN IM DECREASED GLUCOSE; Start 04/23/17 at 02:30 Glucose (Glutose) 15 gm Q15M PRN BUCCAL DECREASED GLUCOSE; Start 04/23/17 at 02 :30 Insulin Glargine (Lantus) 32 unit DAILY@08 SC Last administered on 04/28/17 08 :12; Admin Dose 32 UNIT; Start 04/27/17 at 08:00 Collagenase (Santyl) 1 applic BID TOP Last administered on 04/28/17 08:24; Admin Dose 1 APPLIC; Start 04/26/17 at 21:00 NAVNEET VELASCO NP Apr 28, 2017 14:31
--- NOTE | 2017-04-28 16:24 | DS ---
Date/Time of Note Date/Time of Note DATE: 04/28/17 TIME: 16:22 Discharge Summary Admission/Discharge Info Admit Date/Time Apr 22, 2017 at 22:01 Discharge Date/Time Patient Condition: Serious Hx of Present Illness Chief complaint: Altered level of consciousness, fever, shortness of breath History is obtained from the nursing staff and the ED staff as well as the patient's chart as patient himself is nonverbal. This is a 8-year-old male who was transferred from [facility] for altered level of consciousness fever and shortness of breath. He was sent in to be evaluated for pneumonia. Patient himself is nonverbal and therefore was difficult to get history from him. According to patient's chart he has a history of chronic medication impairment secondary to his strokes and he is not able to follow command and nods rarely. Allergies: NKDA Medications: See [facility] Hospital Course Patient found to be markedly hypernatremic to 170s and had acute kidney injury He was given IV D5W and NS and over the course of his hospitalization his hypernatremia and BECKY resolved He was treated wtih abx for possible sepsis. Cultures grew coag negative staph thought to be contaminant so abx were then stopped He was initally treated wtih tube feeds via NG tube. When his alertness improved, he was evaluated by speech pathology and he passed his swallow study and was given a diet He presentation was thought to be from advanced vascular dementia preventing him from taking enough PO to maintain hydration He needs to be observed drinking and eating by nursing staff daily to prevent this from happening again Home Meds Reported Medications Glucagon HCl (Glucagon HCl) 1 Mg Vial, 1 MG IJ NEEDED for FOR GLUCOSE, VIAL IF GLUCOSE<60MG/DL 04/22/17 Magnesium Hydroxide* (Milk Of Magnesia*) 400 Mg/5 Ml Oral.susp, 30 ML PO Q24H Y for NEEDED, ML 04/22/17 Bisacodyl* (Bisacodyl*) 5 Mg Tablet.dr, 5 MG PO DAILY Y for CONSTIPATION, TAB 04/22/17 Acetaminophen* (Acetaminophen*) 650 Mg Tablet, 650 MG PO Q4H Y for NEEDED, # 30 TAB FOR MILD PAIN 04/22/17 Insulin Glargine,Hum.rec.anlog (Mercedez Verduzco) 300 Unit/1 Ml Insuln.pen, 24 UNIT SQ Q9AM 04/22/17 Metformin Hcl* (Metformin Hcl*) 500 Mg Tablet, 500 MG PO WITH BREAKFAST, #30 TAB Q7AM 04/22/17 [Lotensin 10MG] No Conflict Check, 10 MG PO Q9AM 04/22/17 Discontinued Reported Medications Atorvastatin Calcium* (Atorvastatin Calcium*) 20 Mg Tablet, 20 MG PO QHS, #30 TAB 04/22/17 Rivaroxaban* (Xarelto*) 15 Mg Tablet, 15 MG PO QHS, TAB 04/22/17 Carvedilol* (Carvedilol*) 12.5 Mg Tablet, 12.5 MG PO BID, #60 TAB HOLD FOR SBP<100,HR<60 04/22/17 Famotidine* (Famotidine*) 20 Mg Tablet, 20 MG PO Q9PM, #30 TAB 04/22/17 Donepezil* (Donepezil*) 5 Mg Tablet, 5 MG PO Q9PM, #30 TAB 04/22/17 Atorvastatin* (Atorvastatin*) 40 Mg Tablet, 40 MG PO Q9PM, #30 TAB 04/22/17 Magnesium Oxide* (Magnesium Oxide*) 400 Mg Tablet, 400 MG PO Q9AM, TAB 04/22/17 Chlorthalidone* (Chlorthalidone*) 25 Mg Tablet, 12.5 MG PO Q9AM, TAB 04/22/17 Amlodipine Besylate* (Norvasc*) 5 Mg Tablet, 5 MG PO Q9AM, TAB 04/22/17 Rivaroxaban* (Xarelto*) 20 Mg Tablet, 20 MG PO WITH DINNER, TAB Q5PM 04/22/17 Albuterol Sulfate* (Albuterol Sulfate* Neb) 0.083%-3 Ml Neb, 1 VIAL NEB Q3H Y for WHEEZING AND SOB, EA 08/12/14 Acetaminophen* (Acetaminophen*) 325 Mg Tablet, 650 MG PO Q4H Y for PAIN AND OR ELEVATED TEMP, TAB 08/12/14 Famotidine* (Famotidine*) 20 Mg Tablet, 20 MG PO BID, TAB 08/12/14 Memantine* (Namenda*) 10 Mg Tablet, 10 MG PO BID, TAB 08/12/14 Benazepril Hcl* (Benazepril Hcl*) 20 Mg Tablet, 20 MG PO DAILY, TAB 08/12/14 Atorvastatin* (Atorvastatin*) 40 Mg Tablet, 40 MG PO HS, TAB 08/12/14 Amlodipine Besylate* (Amlodipine Besylate*) 2.5 Mg Tablet, 2.5 MG PO DAILY, TAB 08/12/14 Donepezil* (Donepezil*) 10 Mg Tablet, 10 MG PO DAILY, TAB 08/12/14 Sitagliptin* (Januvia*) 50 Mg Tablet, 50 MG PO DAILY, TAB 08/12/14 Aspirin* (Aspirin* Chew) 81 Mg Tab.chew, 81 MG PO DAILY, TAB.CHEW 08/12/14 Metformin Hcl* (Metformin Hcl*) 500 Mg Tablet, 500 MG PO DAILY, TAB 08/12/14 Magnesium Oxide* (Magnesium Oxide*) 400 Mg Tablet, 400 MG PO DAILY, TAB 08/12/14 Docusate Sodium* (Docusate Sodium*) 100 Mg Capsule, 100 MG PO DAILY, CAP 08/12/14 Multivit/Ca Carb/B Cmplx/Fa* (Christy-Garret*) 1 Tab Tab, 1 TAB PO DAILY, TAB 08/12/14 Folic Acid* (Folic Acid*) 1 Mg Tablet, 1 MG PO, TAB 08/12/14 Discontinued Scripts [Oxybutynin Chloride] 5 MG TAB No Conflict Check, 5 MG PO TID for 30 Days, TAB Prov:MIRNA EGAN MD 08/19/14 Primary Care Provider Yunior Romero MD Pending Labs Laboratory Tests Test 04/27/17 17:35 04/27/17 21:28 04/28/17 02:29 04/28/17 08:07 Bedside Glucose 203mg/dL (70-220) 241mg/dL (70-220) 221mg/dL (70-220) 197mg/dL (70-220) Test 04/28/17 11:56 Bedside Glucose 224mg/dL (70-220) NISHA PRIDE MD Apr 28, 2017 16:24
[2017-04-28] MEDS ORDERED: NA PHOSPHATE/BIPHOS 133 ML ENEMA PR ONE (17:00)
== END 2017-04-28 17:20 | DRG 871 ==
LOC: E/R 16:06 → ICU 22:01 → TEL 04-23 20:45
PROVIDERS: ADMIT Family Medicine; ATTEND Family Medicine
DX: A41.9 Sepsis, unspecified organism (principal); N17.0 Acute kidney failure with tubular necrosis; J96.01 Acute respiratory failure with hypoxia; G93.41 Metabolic encephalopathy; L89.153 Pressure ulcer of sacral region, stage 3; E87.0 Hyperosmolality and hypernatremia; F03.90 Unspecified dementia, unspecified severity, without behavioral disturbance, psychotic disturbance, mood disturbance, and anxiety; R13.12 Dysphagia, oropharyngeal phase; E11.21 Type 2 diabetes mellitus with diabetic nephropathy; I69.954 Hemiplegia and hemiparesis following unspecified cerebrovascular disease affecting left non-dominant side; I12.9 Hypertensive chronic kidney disease with stage 1 through stage 4 chronic kidney disease, or unspecified chronic kidney disease; N18.3 Chronic kidney disease, stage 3 (moderate); Z95.1 Presence of aortocoronary bypass graft; F01.50 Vascular dementia, unspecified severity, without behavioral disturbance, psychotic disturbance, mood disturbance, and anxiety; L89.622 Pressure ulcer of left heel, stage 2; R45.1 Restlessness and agitation; Z78.1 Physical restraint status
CPT/HCPCS: 36415; 70450; 71010; 76775; 80048; 80053; 81001; 82533; 82962; 83036; 83605; 83735; 83930; 83935; 84300; 84439; 84443; 84484; 85025; 85610; 85730; 87040; 87081; 87086; 92526; 92610; 93005; 93306; 96365; 96366; 96372; 96375; A4310; C9113; J0692; J1815; J3370; J3480; J7030; J7050; J7060; J7070

== ENCOUNTER 2017-11-06 20:04 | Inpatient (IN) | END 2017-11-12 18:44 | DRG 871 ==